=== PATIENT | male | born 1950 | race Caucasian/White ===

== ENCOUNTER 2021-11-02 07:50 | Inpatient (IN) ==
[2021-11-02] MEDS ORDERED: IPRATROPIUM/ALBUTEROL 3 ML AMPUL.NEB NEB ONE (08:04)
--- NOTE | 2021-11-02 08:08 | Emergency Department Note ---
HPI General Chief complaint: Shortness of Breath/Dyspnea Stated complaint: shortness of breath Time Seen by Provider: 11/02/21 08:04 Source: EMS Mode of arrival: EMS Limitations: other (SOB, BIPAP) History of Present Illness HPI Narrative: Narrative: 71 yo M w/ h/o COPD, JOSSELIN, muscular deconditioning p/w SOB. He reports chronic SOB that has recently worsened w/ no accompanying fever, chills, cough, or peripheral edema. SOB has been constant since onset. He called out to EMS who found him hypoxic and started him on supplemental O2 (unclear from report if NC or face mask) but had to quickly move up to CPAP at 10mmhg. They gave 125mg IV solumedrol and a nebulizer on route. They noted some blood tinged sputum and thus suspected CHF, and gave a dose of SL NTG. Pt improved w/ these measures. Related Data Home Medications Medication Instructions Recorded Confirmed cyanocobalamin (vitamin B-12) 2,500 mcg SUBLINGUAL QDAY 12/28/17 09/28/21 2,500 mcg sublingual lozenge ferrous sulfate 325 mg (65 mg 325 mg PO QDAY tab 12/28/17 09/28/21 iron) tablet pyridoxine (vitamin B6) 250 mg See Rx Instructions PO .COMPLEX 12/28/17 09/28/21 tablet (Vitamin B-6) bisoprolol fumarate 10 mg tablet 10 mg PO QDAY 02/03/18 09/28/21 guaifenesin 600 mg tablet, 600 mg PO Q12H 02/03/18 09/28/21 extended release 12 hr (Mucinex) atorvastatin 40 mg tablet 40 mg PO QDAY 05/10/18 09/28/21 torsemide 20 mg tablet 20 mg PO QDAY 05/10/18 09/28/21 aspirin 325 mg tablet 81 mg PO QDAY tab 03/26/19 09/28/21 levothyroxine 75 mcg capsule 75 mcg PO QDAY 03/26/19 09/28/21 trazodone 50 mg tablet 50 mg PO QDAY 03/26/19 09/28/21 CPAP #1 ea 10/24/19 09/28/21 acetaminophen [Tylenol] PO QDAY 01/29/20 09/28/21 cholecalciferol (vitamin D3) 25 2,000 unit PO ONCE cap 01/29/20 09/28/21 mcg (1,000 unit) capsule oxymetazoline 0.05 % nasal spray 1 spray INTRANASAL ONCE 01/29/20 09/28/21 (Afrin (oxymetazoline)) famotidine 20 mg tablet 40 mg PO QDAY tab 09/29/20 09/28/21 folic acid 1 mg tablet 1 mg PO QDAY 09/29/20 09/28/21 lisinopril 10 mg tablet 10 mg PO QDAY 09/29/20 09/28/21 Previous Rx's Medication Instructions Recorded fluticasone furoate 100 1 inh INHALATION Q24H #60 each 01/24/20 mcg-vilanterol 25 mcg/dose inhalation powder (Breo Ellipta) tiotropium bromide 2.5 See Rx Instructions .ROUTE 03/21/20 mcg/actuation mist for inhalation .COMPLEX #4 unknown measurement (Spiriva Respimat) unit code: gram fluticasone propionate 50 2 spray INTRANASAL QDAY #54.6 g 05/14/20 mcg/actuation nasal spray,suspension ipratropium 0.5 mg-albuterol 3 mg 3 ml INHALATION Q6H PRN #270 ml 04/01/21 (2.5 mg base)/3 mL nebulization soln albuterol sulfate 90 mcg/actuation 2 puff INHALATION Q6H PRN #8.5 g 04/09/21 aerosol inhaler (Ventolin HFA) Allergies Allergy/AdvReac Type Severity Reaction Status Date / Time No Known Drug Allergies Allergy Verified 06/02/21 11:50 latex tape AdvReac Intermediate Rash Uncoded 06/02/21 11:50 Review of Systems ROS ROS Narrative: Narrative: Limitations: ROS unobtainable due to patients medical condition [facility] Narrative Patient History Narrative: Narrative: Medical/Surgical/Family History All Active Problems (Updated 11/02/21 @ 11:52 by Alli Greene MD) Acute dyspnea (Acute) Acute exacerbation of CHF (congestive heart failure) (Acute) Pneumonia (Acute) Muscular deconditioning (Chronic) History of lung cancer (Acute) Abnormal CT scan, chest (Acute) Hypoxemia (Chronic) Solid nodule of lung greater than 8 mm in diameter (Acute) JOSSELIN on CPAP (Chronic) Non-small cell lung cancer (Chronic) SOB (shortness of breath) (Chronic) Shingles (Chronic) Malignant neoplasm of lung (Chronic) Malignant neoplasm of brain (Chronic) Elevated serum creatinine (Chronic) GERD (gastroesophageal reflux disease) (Chronic) Essential hypertension (Chronic) Morbid obesity (Chronic) Hyperlipidemia (Chronic) Hypothyroidism (Chronic) Malignant tumor of pharynx (Chronic) COPD (chronic obstructive pulmonary disease) (Chronic) Medical History Abnormal CT scan, chest COPD (chronic obstructive pulmonary disease) Elevated serum creatinine Essential hypertension GERD (gastroesophageal reflux disease) History of lung cancer Hyperlipidemia Hypothyroidism Hypoxemia Malignant neoplasm of brain Malignant neoplasm of lung Malignant tumor of pharynx Morbid obesity Muscular deconditioning Non-small cell lung cancer JOSSELIN on CPAP JOSSELIN on CPAP Pneumonia Shingles SOB (shortness of breath) Surgical History History of lobectomy of lung left lower History of throat surgery laryngeal cord Family History Father Heart disease Mother Heart disease Social History Smoking Status: Former smoker Alcohol Intake Frequency: does not drink Substance Use: does not use Exam Narrative Narrative: Narrative: General Limitations: other (SOB, BIPAP) General appearance: Present alert and in no apparent distress Head Head: Present atraumatic and normocephalic ENT ENT: Present normal oropharynx and mucous membranes moist Chest Chest: Present normal inspection and symmetric chest wall rise Respiratory Respiratory: Present decreased breath sounds (markedly decreased B/L air entry) and other (increased WOB but not in negrita distress ); Absent respiratory distress, rales/crackles, wheezes or stridor Cardiovascular Cardiovascular: Present regular rate, normal rhythm, +S1, +S2 and other (2+ B/L radial pulses); Absent systolic murmur or diastolic murmur Adbominal Abdominal: Present soft and normal bowel sounds; Absent distention or tenderness Extremities Extremities: Absent pedal edema Neurological Neurological: Present alert and oriented X3 Psychiatric Psychiatric: Present normal affect Skin Skin: Present warm (WNL) and dry Course Vital Signs Vital signs: Vital Signs Temperature 97.9 F 11/02/21 07:56 Pulse Rate 82 11/02/21 07:56 Respiratory Rate 18 11/02/21 07:56 Blood Pressure 153/85 11/02/21 07:56 Pulse Oximetry (%) 100 11/02/21 07:56 Temperature 98.4 F 11/02/21 11:00 Pulse Rate 69 11/02/21 13:06 Respiratory Rate 18 11/02/21 13:06 Blood Pressure 143/63 11/02/21 11:51 Pulse Oximetry (%) 90 11/02/21 13:06 MDM MDM Narrative Medical decision making narrative: Narrative: 71 yo M w/ h/o COPD, JOSSELIN, muscular deconditioning, HTN, CAD p/w SOB. DDx - COPD exacerbation, PNA, PTX, PE, ACS, CHF, neuromuscular respiratory failure 08:38. Pt arrived via EMS w/ CPAP in place, s/p solumedrol, nebs and NTG. I assessed him immediately on arrival. IV was in place, he was hooked to our monitors and RT switched him to BIPAP 20/10. His exam was notable for markedly decreased air entry. Bedside US was very limited d/t habitus. There was no pericardial effusion, and EF seemed grossly normal. It was difficult to get a good lung window - there did appear to be lung sliding but there were no obvious B lines. I thus started Tx w/ an hour long nebulizer. CXR was completed and showed no PTX, a likely RLL infiltrate, pulmonary edema, and some cardiomegaly. I added on abx. Additionally, given his decreased air entry, I gave a dose of mag. While this is more typically used for asthma, I saw little downside here. 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 Thus I will hold off on NTG until after mag. 09:49. Pt improving, still on BIPAP. ABG shows normal pH, normal CO2. Given this, along w/ his elevated BNP and CXR, the evidence is now pointing much more to CHF as the source of his Sx. Troponin is essentially normal at 0.04. Review of his chart shows that he takes torsemide, and while I did not initially hear this, in d/w the RN, EMS did report that he has a known h/o CHF. I have added another dose of NTG and ordered lasix. CBC shows leukocytosis, c/w likely PNA on CXR. CMP unremarkable. 12:49. Pt continues to improve, has responded well to Tx. Repeat troponin is pending. I have d/w Dr Carl w/ the hospitalist service who has accepted for admission. Of note, his final CXR read was for PNA vs mass. This was not immediately clear to me as PACS was done when he arrived and thus my only CXR view was on the machine. While he has a h/o lung CA and this apparent lung mass, overall CHF seems to be the primary pathology. PE seems less likely clinically. The lung mass itself might be contributory. May need CT chest but will defer to inpt team. Lab Data Lab results reviewed: Yes I reviewed the patient's lab results. Result diagrams: 11/02/21 08:24 11/02/21 08:24 Labs: Lab Results 11/02/21 11/02/21 11/02/21 Range/Units 08:05 08:24 08:24 WBC (4.5-11.0) K/mcL RBC (4.63-6.08) M/mcL Hgb (13.7-17.5) g/dL Hct (40.1-51.0) % MCV (80.0-100.0) fL MCH (26.0-34.0) pg MCHC (31.0-36.0) g/dL RDW (11.5-14.5) % Plt Count (140-440) K/mcL MPV (7.4-10.4) fL Neut % (Auto) (38.0-78.0) % Lymph % (Auto) (15.5-49.0) % [place] % (Auto) (1.0-12.0) % Eos % (Auto) (0.0-7.0) % Baso % (Auto) (0.0-2.0) % Lymph # (Auto) (1.50-4.80) K/mcL [place] # (Auto) (0.10-0.90) K/mcL Eos # (Auto) (0.00-0.70) K/mcL Baso # (Auto) (0.00-0.30) K/mcL Absolute Neutrophils (1.80-8.00) K/mcL PT 15.3 H (11.9-14.5) sec INR 1.2 H (0.9-1.1) APTT 35.5 (20.0-37.0) sec VBG Lactic Acid 1.2 (0.5-2.0) mmol/L Sodium 139 (133-145) mmol/L Potassium 3.9 (3.3-5.1) mmol/L Chloride 104 (96-108) mmol/L Carbon Dioxide 22 (22-30) mmol/L Anion Gap 13.0 (8.0-16.0) BUN 29 H (8-23) mg/dL Creatinine 1.8 H (0.7-1.2) mg/dL GFR Calculation 37 Glucose 136 H (70-105) mg/dL Calcium 9.4 (8.6-10.4) mg/dL Total Bilirubin 1.2 H (0.1-1.0) mg/dL AST 22 (<40) U/L ALT 32 (<40) U/L Alkaline Phosphatase 117 (39-117) U/L Total Creatine Kinase 75 (24-195) U/L CK-MB (CK-2) 1.6 (<6.7) ng/mL Troponin T (<0.03) ng/mL NT-Pro-B Natriuret Pep 2040.0 H (<125.0) pg/mL Total Protein 7.3 (5.9-8.4) gm/dL Albumin 4.1 (3.2-5.2) gm/dL Globulin 3.2 (2.2-3.7) gm/dL Albumin/Globulin Ratio 1.3 (1.0-2.3) Urine Color Urine Appearance (Clear) Urine pH (5.0-9.0) Ur Specific [place] (1.000-1.035) Urine Protein (Negative) mg/dL Urine Glucose (UA) (Negative) mg/dL Urine Ketones (Negative) mg/dL Urine Occult Blood (Negative) mg/dL Urine Nitrate (Negative) Urine Bilirubin (Negative) mg/dL Urine Urobilinogen mg/dL Ur Leukocyte Esterase (Negative) /uL Urine RBC (0-3) /hpf Urine WBC (0-4) /hpf Ur Squamous Epith Cells (0-4) /hpf Urine Bacteria (0) /hpf Urine Mucus (None) /hpf Ur Culture Indicated? 11/02/21 11/02/21 11/02/21 Range/Units 08:24 08:24 10:53 WBC 15.4 H (4.5-11.0) K/mcL RBC 4.64 (4.63-6.08) M/mcL Hgb 12.7 L (13.7-17.5) g/dL Hct 41.1 (40.1-51.0) % MCV 88.6 (80.0-100.0) fL MCH 27.4 (26.0-34.0) pg MCHC 30.9 L (31.0-36.0) g/dL RDW 17.9 H (11.5-14.5) % Plt Count 317 (140-440) K/mcL MPV 10.1 (7.4-10.4) fL Neut % (Auto) 86.5 H (38.0-78.0) % Lymph % (Auto) 4.2 L (15.5-49.0) % [place] % (Auto) 7.4 (1.0-12.0) % Eos % (Auto) 1.2 (0.0-7.0) % Baso % (Auto) 0.7 (0.0-2.0) % Lymph # (Auto) 0.65 L (1.50-4.80) K/mcL [place] # (Auto) 1.14 H (0.10-0.90) K/mcL Eos # (Auto) 0.19 (0.00-0.70) K/mcL Baso # (Auto) 0.11 (0.00-0.30) K/mcL Absolute Neutrophils 13.31 H (1.80-8.00) K/mcL PT (11.9-14.5) sec INR (0.9-1.1) APTT (20.0-37.0) sec VBG Lactic Acid (0.5-2.0) mmol/L Sodium (133-145) mmol/L Potassium (3.3-5.1) mmol/L Chloride (96-108) mmol/L Carbon Dioxide (22-30) mmol/L Anion Gap (8.0-16.0) BUN (8-23) mg/dL Creatinine (0.7-1.2) mg/dL GFR Calculation Glucose (70-105) mg/dL Calcium (8.6-10.4) mg/dL Total Bilirubin (0.1-1.0) mg/dL AST (<40) U/L ALT (<40) U/L Alkaline Phosphatase (39-117) U/L Total Creatine Kinase (24-195) U/L CK-MB (CK-2) (<6.7) ng/mL Troponin T 0.04 H* (<0.03) ng/mL NT-Pro-B Natriuret Pep (<125.0) pg/mL Total Protein (5.9-8.4) gm/dL Albumin (3.2-5.2) gm/dL Globulin (2.2-3.7) gm/dL Albumin/Globulin Ratio (1.0-2.3) Urine Color Straw Urine Appearance Clear (Clear) Urine pH 5.0 (5.0-9.0) Ur Specific [place] 1.009 (1.000-1.035) Urine Protein Negative (Negative) mg/dL Urine Glucose (UA) Negative (Negative) mg/dL Urine Ketones Negative (Negative) mg/dL Urine Occult Blood 0.03 (Negative) mg/dL Urine Nitrate Negative (Negative) Urine Bilirubin Negative (Negative) mg/dL Urine Urobilinogen Negative mg/dL Ur Leukocyte Esterase Negative (Negative) /uL Urine RBC 1 (0-3) /hpf Urine WBC 2 (0-4) /hpf Ur Squamous Epith Cells 0 (0-4) /hpf Urine Bacteria None (0) /hpf Urine Mucus Few A (None) /hpf Ur Culture Indicated? No 11/02/21 Range/Units 12:01 WBC (4.5-11.0) K/mcL RBC (4.63-6.08) M/mcL Hgb (13.7-17.5) g/dL Hct (40.1-51.0) % MCV (80.0-100.0) fL MCH (26.0-34.0) pg MCHC (31.0-36.0) g/dL RDW (11.5-14.5) % Plt Count (140-440) K/mcL MPV (7.4-10.4) fL Neut % (Auto) (38.0-78.0) % Lymph % (Auto) (15.5-49.0) % [place] % (Auto) (1.0-12.0) % Eos % (Auto) (0.0-7.0) % Baso % (Auto) (0.0-2.0) % Lymph # (Auto) (1.50-4.80) K/mcL [place] # (Auto) (0.10-0.90) K/mcL Eos # (Auto) (0.00-0.70) K/mcL Baso # (Auto) (0.00-0.30) K/mcL Absolute Neutrophils (1.80-8.00) K/mcL PT (11.9-14.5) sec INR (0.9-1.1) APTT (20.0-37.0) sec VBG Lactic Acid (0.5-2.0) mmol/L Sodium (133-145) mmol/L Potassium (3.3-5.1) mmol/L Chloride (96-108) mmol/L Carbon Dioxide (22-30) mmol/L Anion Gap (8.0-16.0) BUN (8-23) mg/dL Creatinine (0.7-1.2) mg/dL GFR Calculation Glucose (70-105) mg/dL Calcium (8.6-10.4) mg/dL Total Bilirubin (0.1-1.0) mg/dL AST (<40) U/L ALT (<40) U/L Alkaline Phosphatase (39-117) U/L Total Creatine Kinase (24-195) U/L CK-MB (CK-2) (<6.7) ng/mL Troponin T 0.03 H (<0.03) ng/mL NT-Pro-B Natriuret Pep (<125.0) pg/mL Total Protein (5.9-8.4) gm/dL Albumin (3.2-5.2) gm/dL Globulin (2.2-3.7) gm/dL Albumin/Globulin Ratio (1.0-2.3) Urine Color Urine Appearance (Clear) Urine pH (5.0-9.0) Ur Specific [place] (1.000-1.035) Urine Protein (Negative) mg/dL Urine Glucose (UA) (Negative) mg/dL Urine Ketones (Negative) mg/dL Urine Occult Blood (Negative) mg/dL Urine Nitrate (Negative) Urine Bilirubin (Negative) mg/dL Urine Urobilinogen mg/dL Ur Leukocyte Esterase (Negative) /uL Urine RBC (0-3) /hpf Urine WBC (0-4) /hpf Ur Squamous Epith Cells (0-4) /hpf Urine Bacteria (0) /hpf Urine Mucus (None) /hpf Ur Culture Indicated? ED POC Tests ED POC Tests: SIM - Influenza A Negative SIM - Influenza B Negative SIM - SARS Antigen Negative EKG Data EKG #1: EKG attestation: Yes I reviewed and interpreted this EKG. and Yes There are no EKG findings of acute coronary syndrome EKG results narrative: Sinus rate of 79. Normal CO, QRS, QT intervals. QTc 480. No STEMI, [place], [place]. Single PVC noted. No previous for comparison. CC TIME Critical Care Time Attestation: Approximately 35 minutes of critical care time was used in order to assess and manage the high probability of imminent or life threatening deterioration to the cardiovascular and pulmonary systems which required my highest level of preparedness and interventions with frequent patient assessments. This time is excluding time spent on separately billable procedures. Discharge Plan Patient/Caregiver Discharge Instructions Pt seen by OUTBOARD MOTOR INSPECTOR/PA only: No Clinical Impression: Acute dyspnea, COPD (chronic obstructive pulmonary disease), JOSSELIN on CPAP, Acute exacerbation of CHF (congestive heart failure), Pneumonia Patient Disposition: Xfer As Inpt ([facility]) Condition: Serious Follow up with: Sirena Rosen [Primary Care Provider] - Prescriptions: No Action Breo Ellipta 100-25 mcg/dose blister with device 1 inh INHALATION Q24H Qty: 60 6RF tiotropium bromide [Spiriva Respimat] 2.5 mcg/actuation mist See Rx Instructions .ROUTE .COMPLEX Qty: 4 6RF Dose Instruction: INHALE TWO PUFFS BY MOUTH IN THE MORNING Rx Instructions: INHALE TWO PUFFS BY MOUTH IN THE MORNING fluticasone propionate 50 mcg/actuation spray,suspension 2 spray INTRANASAL QDAY Qty: 54.6 12RF Rx Instructions: administer into each nostril ipratropium-albuterol 0.5 mg-3 mg(2.5 mg base)/3 mL solution for nebulization 3 ml inhalation Q6H PRN (Reason: shortness of breath or wheezing) Qty: 270 3RF Rx Instructions: Do not use within 2 hours of other inhalers albuterol sulfate [Ventolin HFA] 90 mcg/actuation HFA aerosol inhaler 2 puff INHALATION Q6H PRN (Reason: shortness of breath or wheezing) Qty: 8.5 3RF cyanocobalamin (vitamin B-12) 2,500 mcg lozenge 2,500 mcg SUBLINGUAL QDAY 0RF ferrous sulfate 325 mg (65 mg iron) tablet 325 mg PO QDAY 0RF pyridoxine (vitamin B6) [Vitamin B-6] 250 mg tablet See Rx Instructions PO .COMPLEX 0RF Label Comments: PO Rx Instructions: PO aspirin 325 mg tablet 81 mg PO QDAY 0RF acetaminophen PO QDAY 0RF bisoprolol fumarate 10 mg tablet 10 mg PO QDAY 0RF guaifenesin [Mucinex] 600 mg tablet extended release 12hr 600 mg PO Q12H 0RF cholecalciferol (vitamin D3) 25 mcg (1,000 unit) capsule 2,000 unit PO ONCE 0RF atorvastatin 40 mg tablet 40 mg PO QDAY 0RF torsemide 20 mg tablet 20 mg PO QDAY 0RF trazodone 50 mg tablet 50 mg PO QDAY 0RF levothyroxine 75 mcg capsule 75 mcg PO QDAY 0RF oxymetazoline [Afrin (oxymetazoline)] 0.05 % spray,non-aerosol 1 spray INTRANASAL ONCE 0RF (DME) CPAP Qty: 1 0RF Rx Instructions: As directed lisinopril 10 mg tablet 10 mg PO QDAY 0RF famotidine 20 mg tablet 40 mg PO QDAY 0RF folic acid 1 mg tablet 1 mg PO QDAY 0RF
[2021-11-02] MEDS ORDERED: ALBUTEROL SULFATE 5 MG/ML NEB SOLUTION BOTTLE NEB ONE (08:11)
[2021-11-02] MEDS ORDERED: MAGNESIUM SULFATE 8.12 MEQ/2 ML VIAL IV ONE (08:15)
[2021-11-02] MEDS ORDERED: cefTRIAXone 2 GM in DEXTROSE 5% IN WATER 50 ML IV ONE (08:28)
[2021-11-02] MEDS ORDERED: AZITHROMYCIN 500 MG in DEXTROSE 5% IN WATER 250 ML IV ONE (08:28)
[2021-11-02] MEDS ORDERED: MAGNESIUM SULFATE 2 GM/50 ML BAG IV ONE (09:04)
[2021-11-02 09:19] LABS: INR 1.2 (0.9-1.1); Partial Thromboplastin Time 35.5 sec (20.0-37.0); Prothrombin Time 15.3 sec (11.9-14.5)
[2021-11-02 09:26] LABS: Basophils # (Auto) 0.11 K/mcL (0.00-0.30); Basophils % (Auto) 0.7 % (0.0-2.0); Eosinophils # (Auto) 0.19 K/mcL (0.00-0.70); Eosinophils % (Auto) 1.2 % (0.0-7.0); Hematocrit 41.1 % (40.1-51.0); Hemoglobin 12.7 g/dL (13.7-17.5); Lymphocytes # (Auto) 0.65 K/mcL (1.50-4.80); Lymphocytes % (Auto) 4.2 % (15.5-49.0); Mean Cell Volume 88.6 fL (80.0-100.0); Mean Corpuscular HGB Conc 30.9 g/dL (31.0-36.0); Mean Platelet Volume 10.1 fL (7.4-10.4); Monocytes # (Auto) 1.14 K/mcL (0.10-0.90); Monocytes % (Auto) 7.4 % (1.0-12.0); Neutrophils % (Auto) 86.5 % (38.0-78.0); Platelet Count 317 K/mcL (140-440); RBC 4.64 M/mcL (4.63-6.08); Red Cell Distribution Width 17.9 % (11.5-14.5); WBC 15.4 K/mcL (4.5-11.0)
[2021-11-02 09:44] LABS: ALT/SGPT 32 U/L (<40); AST/SGOT 22 U/L (<40); Albumin 4.1 gm/dL (3.2-5.2); Albumin/Globulin Ratio 1.3 (1.0-2.3); Alkaline Phosphatase 117 U/L (39-117); Bilirubin,Total 1.2 mg/dL (0.1-1.0); Blood Urea Nitrogen 29 mg/dL (8-23); Calcium 9.4 mg/dL (8.6-10.4); Carbon Dioxide 22 mmol/L (22-30); Chloride 104 mmol/L (96-108); Creatine Kinase 75 U/L (24-195); Creatine Kinase MB 1.6 ng/mL (<6.7); Globulin 3.2 gm/dL (2.2-3.7); Glomerular Filtration Rate 37; Glucose 136 mg/dL (70-105)
[2021-11-02] MEDS ORDERED: FUROSEMIDE 40 MG/4 ML VIAL IV ONE (09:44)
[2021-11-02] MEDS ORDERED: NITROGLYCERIN 0.4 MG TAB.SUBL SL ONE (09:44)
--- NOTE | 2021-11-02 11:23 | EKG ---
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 Measurements Intervals [place] Rate: 79 P: 53 MS: 191 QRS: -13 QRSD: 116 T: 50 QT: 418 QTc: 480 Interpretive Statements Sinus rhythm Multiform ventricular premature complexes Electronically Signed On 11-02-2021 11:22:48 PST by Jose F Abdi M.D. /[id number]
[2021-11-02 11:49] LABS: Appearance,Urine CLEAR (Clear); Bilirubin,Urine Negative (Negative); Color,Urine STRAW; Culture Indicated,Urine No; Glucose,Urine (UA) Negative (Negative); Ketones,Urine Negative (Negative); Leukocyte Esterase,Urine Negative /uL (Negative); Mucus,Urine FEW /hpf; Nitrate,Urine Negative (Negative); Protein,Urine Negative (Negative); Specific Gravity,Urine 1.009 (1.000-1.035); Urine Blood 0.03 mg/dL (Negative); Urine RBC 1 /hpf (0-3); Urine Squamous Epithelial Cell 0 /hpf (0-4); Urine WBC 2 /hpf (0-4); Urobilinogen,Urine Negative
--- NOTE | 2021-11-02 12:17 | XRay Report ---
CLINICAL INFORMATION: Dyspnea COMPARISON: None. TECHNIQUE: Portable FINDINGS: The heart is mildly enlarged. Mediastinum is unremarkable. The pulmonary vessels are mildly distended. A moderate (7.2 cm) masslike infiltrate or, less likely, a mass is seen in the medial right lung base. There are no effusions. IMPRESSION: Mild CHF. 7 cm mass versus masslike infiltrate in the right medial lung base. If pneumonia is suspected clinically, suggest two view follow-up chest x-ray in the next 3-4 weeks to ensure resolution. If the density persists, chest CT will be required to evaluate for a mass Interpreted and Authenticated by: Jose F Diaz 11/02/21
[2021-11-02] MEDS ORDERED: LACTULOSE 20 GM/30 ML ORAL.SOL PO PRN (13:22)
[2021-11-02] MEDS ORDERED: SENNOSIDES 1 TABLET PO PRN (13:22)
[2021-11-02] MEDS ORDERED: ONDANSETRON 4 MG/2 ML VIAL IV PRN (13:22)
[2021-11-02] MEDS ORDERED: ACETAMINOPHEN 325 MG TABLET PO PRN (13:22)
[2021-11-02] MEDS ORDERED: cefTRIAXone 1 GM in DEXTROSE 5% IN WATER 50 ML IV SCH (13:30)
--- NOTE | 2021-11-02 13:31 | Internal Med History&Physical ---
HPI History of Present Illness Patient information: Note initiated : 11/02/21 at 1:31 pm Service Date, if different from initiated Date: [] Patient: Ced Mejía a 71 y/o M admitted on for shortness of breath. Chief Complaint: [shortness of breath] Chief complaint: shortness of breath History of present illness: Mr. 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 Patient started to have acute onset shortness of breath since yesterday night. He is also complaining of cough with hemoptysis. Is also complaining of respiratory wheezings. He denies any chest pain or chest tightness. He denies any anxiety. He denies any fever, chills, or diaphoresis. He is unaware of the history of heart failure although he stated that he had cardiac coronary stent placement years ago. He denies any unintentional weight gain. He is complaining of mild bilateral legs pitting edema. He denies any change in his appetite. Vital signs at ED presentation significant for oxygen desaturating to the upper 80s on home oxygen. Tachypnea with rate of breathing in the mid 20s. Rest of the vital signs within normal limits. Labs significant for leukocytosis with WBC 15.4. Serum troponin level 0.04 followed by 0.03. BNP 2040. Maren negative. [place] pending. Chest x-ray showing 7 cm mass versus masslike infiltrate in the right medial lung base. Constitutional Constitutional: Absent chills, excessive sweating, fatigue, fever(s) or weakness EENT Eyes: Absent blurry vision, change in vision, loss of vision or other visual disturbances Ears: Absent decreased hearing or tinnitus Nose, mouth and throat: Absent abnormal hearing, dry mouth, headache(s), nasal congestion or sore throat Cardiovascular Cardiovascular: Present edema and leg edema; Absent chest pain, chest pain at rest, irregular heart rhythm or palpatations Respiratory Respiratory: Present cough, dyspnea, hemoptysis and wheezing Gastrointestinal Gastrointestinal: Absent abdominal pain, constipation, diarrhea, nausea or vomi ting Musculoskeletal Musculoskeletal: Absent back pain, deformity, limited range of motion, muscle cramps, muscle weakness or numbness Integumentary Integumentary: Absent lesions, rash or wounds Neurological Neurological: Absent focal weakness, headache(s) or numbness Psychiatric Psychiatric: Absent anxiety, depression or hallucinations PFSH PFSH All Active Problems (Updated 11/02/21 @ 13:40 by Remigio Carl MD) Acute and chronic respiratory failure with hypoxia (Acute) Lung mass (Acute) COPD exacerbation (Acute) Acute respiratory failure with hypoxia (Acute) Acute dyspnea (Acute) Pneumonia (Acute) Muscular deconditioning (Chronic) History of lung cancer (Acute) Abnormal CT scan, chest (Acute) Hypoxemia (Chronic) Solid nodule of lung greater than 8 mm in diameter (Acute) JOSSELIN on CPAP (Chronic) Non-small cell lung cancer (Chronic) SOB (shortness of breath) (Chronic) Shingles (Chronic) Malignant neoplasm of lung (Chronic) Malignant neoplasm of brain (Chronic) Elevated serum creatinine (Chronic) GERD (gastroesophageal reflux disease) (Chronic) Essential hypertension (Chronic) Morbid obesity (Chronic) Hyperlipidemia (Chronic) Hypothyroidism (Chronic) Malignant tumor of pharynx (Chronic) COPD (chronic obstructive pulmonary disease) (Chronic) Medical History Abnormal CT scan, chest COPD (chronic obstructive pulmonary disease) Elevated serum creatinine Essential hypertension GERD (gastroesophageal reflux disease) History of lung cancer Hyperlipidemia Hypothyroidism Hypoxemia Malignant neoplasm of brain Malignant neoplasm of lung Malignant tumor of pharynx Morbid obesity Muscular deconditioning Non-small cell lung cancer JOSSELIN on CPAP JOSSELIN on CPAP Pneumonia Shingles SOB (shortness of breath) Surgical History History of lobectomy of lung left lower History of throat surgery laryngeal cord Family History Father Heart disease Mother Heart disease Social History education level: high school occupational status: unemployed alcohol intake frequency: does not drink substance use type: does not use seatbelt use: always working smoke detector in home: Yes firearms in home: Yes MEDS/ALLERGIES Home Medications and Allergies Home Medications Medication Instructions Recorded Confirmed Type cyanocobalamin (vitamin B-12) 2,500 mcg SUBLINGUAL QDAY 12/28/17 09/28/21 History 2,500 mcg sublingual lozenge ferrous sulfate 325 mg (65 mg 325 mg PO QDAY tab 12/28/17 09/28/21 History iron) tablet pyridoxine (vitamin B6) 250 mg See Rx Instructions PO .COMPLEX 12/28/17 09/28/21 History tablet (Vitamin B-6) bisoprolol fumarate 10 mg tablet 10 mg PO QDAY 02/03/18 09/28/21 History guaifenesin 600 mg tablet, 600 mg PO Q12H 02/03/18 09/28/21 History extended release 12 hr (Mucinex) atorvastatin 40 mg tablet 40 mg PO QDAY 05/10/18 09/28/21 History torsemide 20 mg tablet 20 mg PO QDAY 05/10/18 09/28/21 History aspirin 325 mg tablet 81 mg PO QDAY tab 03/26/19 09/28/21 History levothyroxine 75 mcg capsule 75 mcg PO QDAY 03/26/19 09/28/21 History trazodone 50 mg tablet 50 mg PO QDAY 03/26/19 09/28/21 History CPAP #1 ea 10/24/19 09/28/21 History fluticasone furoate 100 1 inh INHALATION Q24H #60 each 01/24/20 09/28/21 Rx mcg-vilanterol 25 mcg/dose inhalation powder (Breo Ellipta) acetaminophen [Tylenol] PO QDAY 01/29/20 09/28/21 History cholecalciferol (vitamin D3) 25 2,000 unit PO ONCE cap 01/29/20 09/28/21 History mcg (1,000 unit) capsule oxymetazoline 0.05 % nasal spray 1 spray INTRANASAL ONCE 01/29/20 09/28/21 History (Afrin (oxymetazoline)) tiotropium bromide 2.5 See Rx Instructions .ROUTE 03/21/20 09/28/21 Rx mcg/actuation mist for inhalation .COMPLEX #4 unknown measurement (Spiriva Respimat) unit code: gram fluticasone propionate 50 2 spray INTRANASAL QDAY #54.6 g 05/14/20 09/28/21 Rx mcg/actuation nasal spray,suspension famotidine 20 mg tablet 40 mg PO QDAY tab 09/29/20 09/28/21 History folic acid 1 mg tablet 1 mg PO QDAY 09/29/20 09/28/21 History lisinopril 10 mg tablet 10 mg PO QDAY 09/29/20 09/28/21 History ipratropium 0.5 mg-albuterol 3 mg 3 ml INHALATION Q6H PRN #270 ml 04/01/21 09/28/21 Rx (2.5 mg base)/3 mL nebulization soln albuterol sulfate 90 mcg/actuation 2 puff INHALATION Q6H PRN #8.5 g 04/09/21 09/28/21 Rx aerosol inhaler (Ventolin HFA) Allergies Allergy/AdvReac Type Severity Reaction Status Date / Time No Known Drug Allergies Allergy Verified 06/02/21 11:50 latex tape AdvReac Intermediate Rash Uncoded 06/02/21 11:50 EXAM Constitutional Vitals: Temp Pulse Resp BP Pulse Ox 36.9 C 82 25 H 176/85 95 11/02/21 11:00 11/02/21 13:21 11/02/21 13:25 11/02/21 13:21 11/02/21 13:21 General appearance: cooperative and no acute distress Head Head exam: Present atraumatic and normocephalic Eye Eye exam: Present EOMI and PERRL ENT ENT exam: Present mucous membranes moist, normal exam and normal external ear exam Additional comments: BiPAP in place Neck Neck exam: Present normal inspection; Absent lymphadenopathy, tenderness or thyromegaly Respiratory Respiratory exam: Present decreased breath sounds and rhonchi; Absent accessory muscle use, CTAB, respiratory distress or wheezes Cardiovascular Cardiovascular exam: Present normal rate and rhythm; Absent JVD GI/Abdominal GI/Abdominal exam: Present normal bowel sounds and soft; Absent organomegaly or tenderness Rectal Rectal exam: Present deferred Extremities Exam Extremities exam: Present full ROM, normal capillary refill and normal inspection; Absent tenderness Neurological Exam Neurological exam: Present alert, CN II-XII intact and oriented X3; Absent motor sensory deficit Psychiatric Psychiatric exam: Present normal affect and normal mood; Absent anxious or depressed Skin Skin exam: Present dry and intact DATA Data Completed and Pending Labs: Labs from last 24 hours 11/02/21 11/02/21 11/02/21 12:01 10:53 08:24 WBC 15.4 H RBC 4.64 Hgb 12.7 L Hct 41.1 MCV 88.6 MCH 27.4 MCHC 30.9 L RDW 17.9 H Plt Count 317 MPV 10.1 Neut % (Auto) 86.5 H Lymph % (Auto) 4.2 L Mcmullen % (Auto) 7.4 Eos % (Auto) 1.2 Baso % (Auto) 0.7 Lymph # (Auto) 0.65 L Mcmullen # (Auto) 1.14 H Eos # (Auto) 0.19 Baso # (Auto) 0.11 Absolute Neutrophils 13.31 H PT INR APTT VBG Lactic Acid Sodium Potassium Chloride Carbon Dioxide Anion Gap BUN Creatinine GFR Calculation Glucose Calcium Total Bilirubin AST ALT Alkaline Phosphatase Total Creatine Kinase CK-MB (CK-2) Troponin T 0.03 H NT-Pro-B Natriuret Pep Total Protein Albumin Globulin Albumin/Globulin Ratio Urine Color Straw Urine Appearance Clear Urine pH 5.0 Ur Specific [place] 1.009 Urine Protein Negative Urine Glucose (UA) Negative Urine Ketones Negative Urine Occult Blood 0.03 Urine Nitrate Negative Urine Bilirubin Negative Urine Urobilinogen Negative Ur Leukocyte Esterase Negative Urine RBC 1 Urine WBC 2 Ur Squamous Epith Cells 0 Urine Bacteria None Urine Mucus Few A Ur Culture Indicated? No 11/02/21 11/02/21 11/02/21 08:24 08:24 08:24 WBC RBC Hgb Hct MCV MCH MCHC RDW Plt Count MPV Neut % (Auto) Lymph % (Auto) Mcmullen % (Auto) Eos % (Auto) Baso % (Auto) Lymph # (Auto) Mcmullen # (Auto) Eos # (Auto) Baso # (Auto) Absolute Neutrophils PT INR APTT VBG Lactic Acid 1.2 Sodium 139 Potassium 3.9 Chloride 104 Carbon Dioxide 22 Anion Gap 13.0 BUN 29 H Creatinine 1.8 H GFR Calculation 37 Glucose 136 H Calcium 9.4 Total Bilirubin 1.2 H AST 22 ALT 32 Alkaline Phosphatase 117 Total Creatine Kinase 75 CK-MB (CK-2) 1.6 Troponin T 0.04 H* NT-Pro-B Natriuret Pep 2040.0 H Total Protein 7.3 Albumin 4.1 Globulin 3.2 Albumin/Globulin Ratio 1.3 Urine Color Urine Appearance Urine pH Ur Specific [place] Urine Protein Urine Glucose (UA) Urine Ketones Urine Occult Blood Urine Nitrate Urine Bilirubin Urine Urobilinogen Ur Leukocyte Esterase Urine RBC Urine WBC Ur Squamous Epith Cells Urine Bacteria Urine Mucus Ur Culture Indicated? 11/02/21 08:05 WBC RBC Hgb Hct MCV MCH MCHC RDW Plt Count MPV Neut % (Auto) Lymph % (Auto) Mcmullen % (Auto) Eos % (Auto) Baso % (Auto) Lymph # (Auto) Mcmullen # (Auto) Eos # (Auto) Baso # (Auto) Absolute Neutrophils PT 15.3 H INR 1.2 H APTT 35.5 VBG Lactic Acid Sodium Potassium Chloride Carbon Dioxide Anion Gap BUN Creatinine GFR Calculation Glucose Calcium Total Bilirubin AST ALT Alkaline Phosphatase Total Creatine Kinase CK-MB (CK-2) Troponin T NT-Pro-B Natriuret Pep Total Protein Albumin Globulin Albumin/Globulin Ratio Urine Color Urine Appearance Urine pH Ur Specific [place] Urine Protein Urine Glucose (UA) Urine Ketones Urine Occult Blood Urine Nitrate Urine Bilirubin Urine Urobilinogen Ur Leukocyte Esterase Urine RBC Urine WBC Ur Squamous Epith Cells Urine Bacteria Urine Mucus Ur Culture Indicated? A/P Assessment and plan (1) JOSSELIN on CPAP: Status: Chronic (2) Acute respiratory failure with hypoxia: Status: Acute (3) COPD exacerbation: Status: Acute (4) Lung mass: Status: Acute (5) GERD (gastroesophageal reflux disease): Status: Chronic Qualifiers: Esophagitis presence: esophagitis presence not specified Qualified Code(s): K21.9 - Gastro-esophageal reflux disease without esophagitis (6) Morbid obesity: Status: Chronic (7) Essential hypertension: Status: Chronic (8) Hyperlipidemia: Status: Chronic (9) Hypothyroidism: Status: Chronic (10) Acute and chronic respiratory failure with hypoxia: Status: Acute Narrative A/P Narrative: Assessment and Plans: 1. Acute on chronic respiratory failure with hypoxia: DDx: COPD exacerbation vs CHF exacerbation vs community acquired pneumonia vs recurrence of lung cancer vs CoVID pneumonia Inpatient PCU telemetry Isolation: airborne and contact, while waiting for [place] results BiPAP ABG COPD exacerbation: Prednisone DuoNEB NEB q4hr scheduled DuoNEB NEB q2hr PRN wheezing Spiriva and Breo Azithromycin CHF with exacerbation: Intake and output Daily weight 2L/day fluid restriction Lasix 20mg IV BID Beta jahaira Lisinopril 2D echocardiogram CAP: Rocephin Zithromax cbc w/ auto diff in the monring to trend WBC Recurrence of lung cancer: f/u CT chest w/o contrast to better delineate the 7cm mass seen in the 1 view CXR JOSSELIN on CPAP: Currently on BiPAP 2. 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 Essential HTN: Currently normotensive Lasix 20mg IV BID Beta jahaira Lisinopril Hydralazine 10mg IV q4hr PRN SBp>=180 and/or DBP>=110mmHg 4. Mixed dyslipidemia: Continue statin therapy 5. GERD: Continue Famotidine 6. Hypothyroidism: Continue oral thyroid replacement therapy 7. CKD III: Current serum Cr level at baseline Avoid nephrotoxic agents Saline lock with Lasix CMP in the morning to trend kidney functions 8. Elevated troponin-i level: Serial troponin trend GI ppx: Famotidine DVT ppx: Heparin Code status: Full Prognosis: extremely guarded Disposition: inpatient PCU telemetry Time Spent With Patient Time: Total time spent is greater than 50% in coordination of care (as documented) at patient's floor/unit and/or counseling patient: Total time spent with greater than 50% in coordination of care (as documented) at patient's floor/unit and/or counseling patient:: Greater than 35 minutes
[2021-11-02] MEDS ORDERED: IPRATROPIUM/ALBUTEROL 3 ML AMPUL.NEB NEB PRN (14:29)
[2021-11-02] MEDS ORDERED: hydrALAZINE 20 MG/ML VIAL IV PRN (14:29)
[2021-11-02] MEDS ORDERED: OXYMETAZOLINE 1 SPRAY BOTTLE NAS SCH (14:29)
--- NOTE | 2021-11-02 14:35 | Cat Scan Report ---
CLINICAL INFORMATION: Right middle lobe mass on plain film. COMPARISON: Plain film 11/02/2021 TECHNIQUE: 0.625 mm axial slices were obtained from the lung apices through the bases without intravenous contrast. 2.5 mm Sagittal, coronal and axial reformatted images were processed and reviewed at bone, lung and soft tissue windows. 7 mm axial MIP images were also reconstructed to optimize pulmonary nodule detection.The exam was performed using radiation dose optimization techniques including, but not limited to, automated exposure control, adjustment of the mA and/or kV according to patient size and use of iterative reconstruction technique. FINDINGS: Pulmonary parenchymal windows show a 6.2 cm stellate mass in the right infrahilar region which encases and obstructs the right middle lobe bronchus. It results in complete right middle lobe atelectasis. Mass also narrows the right lower lobe bronchus resulting in partial right lower lobe atelectasis. This is suspicious for primary lung carcinoma. A 19 mm linear, yet slightly irregular, density in the left lung apex almost certainly focal scarring. Moderate consolidated infiltrate or atelectasis involving the medial and posterior basilar segments of the left lower lobe are also noted. Severe underlying centrilobular emphysema features chronic bronchitis and multiple bullae nearly replacing the upper lobes. There is also scattered groundglass airspace disease predominantly in the periphery of the upper lobes. This likely represents chronic fibrosis. There are no pleural effusions. Mediastinal windows show the heart is mildly enlarged with moderate calcific plaque scattered in the coronary arteries. Noncontrast vascularity is normal diameter with atherosclerotic plaque scattered. The central pulmonary arteries are mildly enlarged: main pulmonary diameter: 3.7 cm compatible with pulmonary hypertension related to COPD. A few mildly enlarged lymph nodes are seen in the right infrahilar region may be metastatic or reactive. There are also scattered (6-7 and (enlarged mid and upper mediastinal lymph nodes ranging up to 17 mm anterior paratracheal region and they may be metastatic or benign reactive lymph nodes. Esophagus is grossly normal. Thyroid is normal. Bones and soft tissues of the chest wall show no abnormality. Images Images through the noncontrasted superior abdomen show liver adrenal glands pancreas and spleen to be normal. There are 2-3 small stones in the gallbladder neck. IMPRESSION: 1. 6 cm stellate mass in the right infrahilar region including the right middle lobe bronchus resulting in complete right middle lobe atelectasis. It also narrows the right lower lobe bronchus resulting in partial right lower lobe atelectasis. It is suspicious for primary lung carcinoma. There are mildly enlarged lymph nodes in the right hilum and mediastinum which are either metastatic or reactive. Suggest: CT-guided percutaneous biopsy. Patient will eventually require PET/CT for staging. 2. Moderate consolidated atelectasis or infiltrate in the medial posterior basilar left lower lobe segments 3. Moderate centrilobular emphysema. Mild enlargement of the central pulmonary arteries compatible with associated pulmonary hypertension. 4. Focal scarring left lung apex 5. Cholelithiasis. Interpreted and Authenticated by: Jose F Diaz 11/02/21
[2021-11-02] MEDS: 0.9 % SODIUM CHLORIDE 10 ML SYRINGE IV SCH ×2 (15:46→21:53)
[2021-11-02] MEDS: FUROSEMIDE 20 MG/2 ML VIAL IV SCH (15:52)
[2021-11-02] MEDS: guaiFENesin 600 MG TAB.SR.12H PO SCH (15:52)
[2021-11-02] MEDS: IPRATROPIUM/ALBUTEROL 3 ML AMPUL.NEB NEB SCH ×3 (16:25→21:45)
[2021-11-02] MEDS ORDERED: traZODone HCL 50 MG TABLET PO PRN (21:00)
[2021-11-02] MEDS: HEPARIN 5,000 UNIT/ML VIAL SQ SCH (21:52)
[2021-11-02] MEDS: DOCUSATE SODIUM 100 MG CAPSULE PO SCH (21:52)
[2021-11-03] MEDS: guaiFENesin 600 MG TAB.SR.12H PO SCH ×3 (02:36→21:52)
[2021-11-03] MEDS: IPRATROPIUM/ALBUTEROL 3 ML AMPUL.NEB NEB SCH ×6 (03:08→23:15)
[2021-11-03] MEDS: 0.9 % SODIUM CHLORIDE 10 ML SYRINGE IV SCH ×3 (05:42→21:53)
[2021-11-03] MEDS: LEVOTHYROXINE 75 MCG TABLET PO SCH (07:45)
[2021-11-03] MEDS ORDERED: FAMOTIDINE 20 MG TABLET PO SCH (09:00)
[2021-11-03] MEDS ORDERED: ATORVASTATIN 40 MG TABLET PO SCH (09:00)
[2021-11-03] MEDS ORDERED: ASPIRIN 81 MG TAB.CHEW PO SCH (09:00)
[2021-11-03] MEDS ORDERED: PYRIDOXINE 100 MG TABLET PO SCH (09:00)
[2021-11-03] MEDS: AZITHROMYCIN 500 MG in DEXTROSE 5% IN WATER 250 ML IV SCH (09:00)
[2021-11-03] MEDS ORDERED: CALCIUM CARBONATE 500 MG TAB.CHEW CHEWED PRN (09:03)
[2021-11-03 09:11] LABS: Basophils # (Auto) 0.02 K/mcL (0.00-0.30); Basophils % (Auto) 0.1 % (0.0-2.0); Eosinophils # (Auto) 0 K/mcL (0.00-0.70); Eosinophils % (Auto) 0 % (0.0-7.0); Hematocrit 39.8 % (40.1-51.0); Hemoglobin 12.4 g/dL (13.7-17.5); Lymphocytes # (Auto) 0.54 K/mcL (1.50-4.80); Lymphocytes % (Auto) 3.5 % (15.5-49.0); Mean Cell Volume 89.6 fL (80.0-100.0); Mean Corpuscular HGB Conc 31.2 g/dL (31.0-36.0); Monocytes # (Auto) 0.85 K/mcL (0.10-0.90); Monocytes % (Auto) 5.5 % (1.0-12.0); Neutrophils % (Auto) 90.9 % (38.0-78.0); Platelet Count 292 K/mcL (140-440); RBC 4.44 M/mcL (4.63-6.08); WBC 15.4 K/mcL (4.5-11.0)
--- NOTE | 2021-11-03 09:16 | Internal Med Progress Note ---
SUBJECTIVE Subjective Patient information: Note initiated : 11/03/21 at 9:09 am Service Date, if different from initiated Date: [] Patient: Ced Mejía a 71 y/o M admitted on 11/02/21 for shortness of breath. Chief Complaint: [shortness of breath] Interval history: History of present illness: Mr. Mejía is a 71 year old M history of squamous cell carcinoma status post lobectomy of the left lower lobe, skin cancer, brain cancer, COPD on oxygen ther apy up to 3.5 L/min, obstructive sleep apnea on CPAP, chronic kidney disease, essential hypertension's, mixed dyslipidemia, morbid obesity, hypothyroidism, presenting with 2-day history of acute onset shortness of breath. Patient started to have acute onset shortness of breath since yesterday night. He is also complaining of cough with hemoptysis. Is also complaining of respiratory wheezings. He denies any chest pain or chest tightness. He denies any anxiety. He denies any fever, chills, or diaphoresis. He is unaware of the history of heart failure although he stated that he had cardiac coronary stent placement years ago. He denies any unintentional weight gain. He is complaining of mild bilateral legs pitting edema. He denies any change in his appetite. Vital signs at ED presentation significant for oxygen desaturating to the upper 80s on home oxygen. Tachypnea with rate of breathing in the mid 20s. Rest of the vital signs within normal limits. Labs significant for leukocytosis with WBC 15.4. Serum troponin level 0.04 followed by 0.03. BNP 2040. [place] negative. [place] pending. Chest x-ray showing 7 cm mass versus masslike infiltrate in the right medial lung base. 11/03: On 13L/min oxygen. Was on CPAP overnight. Afebrile overnight. CT chest w/o from 11/05 showed 6cm stellate mass in the right infrahilar region including the right middle lobe bronchus with complete right middle lobe atelectasis suspicious for primary lung carcinoma. Also mildly enlarged lymph nodes. c/o mild SOB. c/o productive cough with yellow sputum. Denies wheezing. Denies chest pain. Denies fever, chills, or sweating. Constitutional Vitals: Vital Signs Temp Pulse Resp BP Pulse Ox 36.1 C L 72 16 130/79 96 11/03/21 08:38 11/03/21 07:20 11/03/21 08:38 11/03/21 08:38 11/03/21 08:38 Period Temp Pulse Resp BP Sys/Vazquez Pulse Ox Last 24 Hr 36.1 C-36.9 C 68-84 16-34 94-183/57-141 88-98 Intake and Output 11/02/21 11/03/21 11/03/21 21:59 05:59 13:59 Intake Total 1440 Output Total 1100 550 Balance -1100 890 Weight 136.803 kg Intake & Output: Intake & Output 11/02/21 11/03/21 11/03/21 21:59 05:59 13:59 Intake Total 1440 Output Total 1100 550 Balance -1100 890 Weight 136.803 kg Intake: Oral 1440 Output: Void Amount 1100 550 Other: Urine Appearance Clear Clear Clear Urine Color Bright Yellow Bright Yellow Bright Yellow Urine Odor Normal Normal Head Head exam: Present atraumatic and normal inspection Eye Eye exam: Present normal appearance ENT ENT exam: Present mucous membranes moist, normal exam and normal external ear exam Additional comments: High flow oxygen in place Neck Neck exam: Present normal inspection Respiratory Respiratory exam: Present normal respiratory exam, decreased breath sounds, rhonchi and wheezes Cardiovascular Cardiovascular exam: Present normal rate and rhythm GI/Abdominal GI/Abdominal exam: Present normal bowel sounds Back Exam Back exam: Present normal inspection Neurological Exam Neurological exam: Present alert and oriented X3 Skin Skin exam: Present intact and warm OBJ DATA Labs CBC & Chem 7: 11/02/21 08:24 11/02/21 08:24 Labs: Abnormal Lab Results 11/02/21 11/02/21 11/02/21 18:07 12:01 10:53 WBC Hgb MCHC RDW Neut % (Auto) Lymph % (Auto) Lymph # (Auto) Day # (Auto) Absolute Neutrophils PT INR BUN Creatinine Glucose Total Bilirubin Troponin T 0.03 H 0.03 H NT-Pro-B Natriuret Pep Urine Mucus Few A 11/02/21 11/02/21 11/02/21 08:24 08:24 08:24 WBC 15.4 H Hgb 12.7 L MCHC 30.9 L RDW 17.9 H Neut % (Auto) 86.5 H Lymph % (Auto) 4.2 L Lymph # (Auto) 0.65 L Day # (Auto) 1.14 H Absolute Neutrophils 13.31 H PT INR BUN 29 H Creatinine 1.8 H Glucose 136 H Total Bilirubin 1.2 H Troponin T 0.04 H* NT-Pro-B Natriuret Pep 2040.0 H Urine Mucus 11/02/21 08:05 WBC Hgb MCHC RDW Neut % (Auto) Lymph % (Auto) Lymph # (Auto) Day # (Auto) Absolute Neutrophils PT 15.3 H INR 1.2 H BUN Creatinine Glucose Total Bilirubin Troponin T NT-Pro-B Natriuret Pep Urine Mucus Meds: Medications Acetaminophen (Acetaminophen 325 Mg Tablet) 1,000 mg PO BID [facility]; Protocol Albuterol/Ipratropium (Ipratropium/Albuterol 3 Ml Ampul.Neb) 3 ml NEB Q4HRT [facility] Last Admin: 11/03/21 07:30 Dose: 3 ml Documented by: Albuterol/Ipratropium (Ipratropium/Albuterol 3 Ml Ampul.Neb) 3 ml NEB Q2HP PRN PRN Reason: Wheezing Aspirin (Aspirin 81 Mg Tab.Chew) 81 mg PO DAILY [facility] Atorvastatin Calcium (Atorvastatin 40 Mg Tablet) 40 mg PO HS [facility] Bisoprolol Fumarate (Bisoprolol 5 Mg Tablet) 10 mg PO DAILY [facility] Calcium Carbonate/Glycine (Calcium Carbonate 500 Mg Tab.Chew) 1,000 mg CHEWED Q4HP PRN PRN Reason: Dyspepsia Ceftriaxone Sodium (Ceftriaxone 1 Gm Vial) 1 gm IV DAILY [facility] Cyanocobalamin (Cyanocobalamin (Vitamin B-12) 500 Mcg Tablet) 2,500 mcg PO DAILY [facility] Docusate Sodium (Docusate Sodium 100 Mg Capsule) 100 mg PO BID [facility] Last Admin: 11/02/21 21:52 Dose: Not Given Documented by: Famotidine (Famotidine 20 Mg Tablet) 40 mg PO HS [facility] Ferrous Sulfate (Ferrous Sulfate 325 Mg Tablet) 325 mg PO QAC [facility] Fluticasone Propionate (Fluticasone Propionate [place].Dimitry) 2 spray NS DAILY [facility] Folic Acid (Folic Acid 1 Mg Tablet) 1 mg PO QDAY [facility] Furosemide (Furosemide 20 Mg/2 Ml Vial) 20 mg IV BIDD [facility] Last Admin: 11/02/21 15:52 Dose: 20 mg Documented by: Guaifenesin (Guaifenesin 600 Mg Tab.Sr.12h) 600 mg PO BID [facility] Heparin Sodium (Porcine) (Heparin 5,000 Unit/Ml Vial) 5,000 unit SQ Q12 [facility] Last Admin: 11/02/21 21:52 Dose: 5,000 unit Documented by: Hydralazine HCl (Hydralazine 20 Mg/Ml Vial) 10 mg IV Q4HP PRN PRN Reason: Hypertension Azithromycin 500 mg/ Dextrose 250 mls @ 250 mls/hr IV DAILY [facility]; Protocol Stop: 11/04/21 09:59 Lactulose (Lactulose 20 Gm/30 Ml Oral.Gabriella) 10 gm PO DAILYP PRN PRN Reason: Constipation Levothyroxine Sodium (Levothyroxine 75 Mcg Tablet) 75 mcg PO QAMAC [facility] Last Admin: 11/03/21 07:45 Dose: 75 mcg Documented by: Lisinopril (Lisinopril 10 Mg Tablet) 10 mg PO QDAY [facility] Ondansetron HCl (Ondansetron 4 Mg/2 Ml Vial) 4 mg IV Q4HP PRN; Protocol PRN Reason: Nausea And Vomiting Fluticasone Furoate- Vilanterol [Breo Ellipta] 100 Mcg- 25 Mcg/Dose Inhaler 1 dose INH DAILY [facility] Tiotropium [place] [ Spiriva Respimat] 2. 5 Mcg/Act Inhaler 1 dose INH DAILY [facility] Prednisone (Prednisone 20 Mg Tablet) 40 mg PO QAC [facility] Pyridoxine HCl (Pyridoxine 100 Mg Tablet) 250 mg PO DAILY [facility] Senna (Sennosides 1 Tablet) 2 tab PO HSP PRN PRN Reason: Constipation Sodium Chloride (0.9 % Sodium Chloride 10 Ml Syringe) 10 ml IV Q8 [facility] Last Admin: 11/03/21 05:42 Dose: 10 ml Documented by: Trazodone HCl (Trazodone Hcl 100 Mg Tablet) 100 mg PO HS [facility] Vitamin D (Vitamin D3 25 Mcg Tablet) 50 mcg PO DAILY [facility] A/P Assessment and plan (1) JOSSELIN on CPAP: Status: Chronic (2) Acute respiratory failure with hypoxia: Status: Acute (3) COPD exacerbation: Status: Acute (4) Lung mass: Status: Acute (5) GERD (gastroesophageal reflux disease): Status: Chronic Qualifiers: Esophagitis presence: esophagitis presence not specified Qualified Code(s): K21.9 - Gastro-esophageal reflux disease without esophagitis (6) Morbid obesity: Status: Chronic (7) Essential hypertension: Status: Chronic (8) Hyperlipidemia: Status: Chronic (9) Hypothyroidism: Status: Chronic (10) Acute and chronic respiratory failure with hypoxia: Status: Acute Narrative A/P Narrative: Assessment and Plans: 1. Acute on chronic respiratory failure with hypoxia: DDx: COPD exacerbation vs CHF exacerbation vs community acquired pneumonia vs recurrence of lung cancer vs CoVID pneumonia Inpatient PCU telemetry Isolation: airborne and contact, while waiting for [place] results BiPAP ABG Supplemental oxygen therapy titrate to achieve spo2>=88% given COPD-er, currently on high flow oxygen 13L/min COPD exacerbation: Prednisone DuoNEB NEB q4hr scheduled DuoNEB NEB q2hr PRN wheezing Spiriva and Breo Azithromycin CHF with exacerbation: Intake and output Daily weight 2L/day fluid restriction Lasix 20mg IV BID Beta jahaira Lisinopril 2D echocardiogram, results pending CAP: Rocephin Zithromax cbc w/ auto diff in the [place] to trend WBC Blood culture no growth to date Sputum culture no growth to date Recurrence of lung cancer: f/u CT chest w/o contrast to better delineate the 7cm mass seen in the [address] chest w/o from 11/05 showed 6cm stellate mass in the right infrahilar region including the right middle lobe bronchus with complete right middle lobe atelectasis suspicious for primary lung carcinoma. Also mildly enlarged lymph no juan f.-->spoke with radiology, will perform CT guided lung biopsy. Will eventually need PET/CT whole body for staging purposes JOSSELIN on CPAP: Currently on BiPAP 2. Morbid obesity BMI 45: [employer] patient on life style modifications including healthy diet and regular exercise in order to lose weight 3. Essential HTN: Currently normotensive Lasix 20mg IV BID Beta jahaira Lisinopril Hydralazine 10mg IV q4hr PRN SBp>=180 and/or DBP>=110mmHg 4. Mixed dyslipidemia: Continue statin therapy 5. GERD: Continue Famotidine 6. Hypothyroidism: Continue oral thyroid replacement therapy 7. CKD III: Current serum Cr level at baseline Avoid nephrotoxic agents Saline lock with Lasix CMP in the morning to trend kidney functions 8. Elevated troponin-i level: Serial troponin trend GI ppx: Famotidine DVT ppx: Heparin Code status: Full Prognosis: guarded Disposition: inpatient PCU telemetry Time Spent With Patient Time: Total time spent is greater than 50% in coordination of care (as documented) at patient's floor/unit and/or counseling patient: Total time spent with greater than 50% in coordination of care (as documented) at patient's floor/unit and/or counseling patient:: Greater than 35 minutes QUALITY VTE Deep Vein Thrombosis/Pulmonary Embolism Present on Admission: No
[2021-11-03 09:39] LABS: ALT/SGPT 27 U/L (<40); AST/SGOT 21 U/L (<40); Albumin 3.8 gm/dL (3.2-5.2); Albumin/Globulin Ratio 1.2 (1.0-2.3); Alkaline Phosphatase 113 U/L (39-117); Blood Urea Nitrogen 36 mg/dL (8-23); Calcium 9.6 mg/dL (8.6-10.4); Carbon Dioxide 23 mmol/L (22-30); Chloride 104 mmol/L (96-108); Globulin 3.2 gm/dL (2.2-3.7); Glomerular Filtration Rate 39; Glucose 153 mg/dL (70-105); Phosphorous 3.2 mg/dL (2.5-4.5)
[2021-11-03] MEDS: LISINOPRIL 10 MG TABLET PO SCH (10:55)
[2021-11-03] MEDS: cefTRIAXone 1 GM VIAL IV SCH (10:55)
[2021-11-03] MEDS: CYANOCOBALAMIN (VITAMIN B-12) 500 MCG TABLET PO SCH (10:55)
[2021-11-03] MEDS: VITAMIN D3 25 MCG TABLET PO SCH (10:55)
[2021-11-03] MEDS: predniSONE 20 MG TABLET PO SCH (10:55)
[2021-11-03] MEDS: FOLIC ACID 1 MG TABLET PO SCH (10:56)
[2021-11-03] MEDS: DOCUSATE SODIUM 100 MG CAPSULE PO SCH ×2 (10:56→21:52)
[2021-11-03] MEDS: HEPARIN 5,000 UNIT/ML VIAL SQ SCH ×2 (10:56→21:52)
[2021-11-03] MEDS: FUROSEMIDE 20 MG/2 ML VIAL IV SCH ×2 (10:56→15:08)
[2021-11-03] MEDS: FERROUS SULFATE 325 MG TABLET PO SCH (10:56)
[2021-11-03] MEDS: FLUTICASONE FUROATE VILANTEROL INH SCH (10:57)
[2021-11-03] MEDS: FLUTICASONE PROPIONATE SPRAY.NAS NS SCH (10:57)
[2021-11-03] MEDS: Tiotropium Bromide [Spiriva Respimat] 2.5 mcg/act Inhaler INH SCH (10:57)
[2021-11-03] MEDS: ACETAMINOPHEN 325 MG TABLET PO SCH (10:58)
[2021-11-03] MEDS: BISOPROLOL 5 MG TABLET PO SCH (11:33)
[2021-11-03] MEDS ORDERED: NON FORMULARY MEDICATION 1 DOSE MISCELL (Acetaminophen 1,000 MG) PO SCH (21:00)
[2021-11-03] MEDS ORDERED: FAMOTIDINE 40 MG PO SCH (21:00)
[2021-11-03] MEDS ORDERED: traZODone HCL 100 MG TABLET PO SCH (21:00)
[2021-11-03] MEDS: FAMOTIDINE 20 MG TABLET PO SCH (21:52)
[2021-11-03] MEDS: ATORVASTATIN 40 MG TABLET PO SCH (21:52)
[2021-11-04] MEDS: ACETAMINOPHEN 325 MG TABLET PO SCH ×3 (00:19→23:59)
[2021-11-04] MEDS: traZODone HCL 100 MG TABLET PO SCH ×2 (00:19→23:59)
[2021-11-04] MEDS: 0.9 % SODIUM CHLORIDE 10 ML SYRINGE IV SCH ×3 (05:30→21:51)
[2021-11-04] MEDS: IPRATROPIUM/ALBUTEROL 3 ML AMPUL.NEB NEB SCH ×6 (05:30→23:35)
[2021-11-04] MEDS: LEVOTHYROXINE 75 MCG TABLET PO SCH (07:09)
[2021-11-04 07:56] LABS: Basophils # (Auto) 0.04 K/mcL (0.00-0.30); Basophils % (Auto) 0.2 % (0.0-2.0); Eosinophils # (Auto) 0.01 K/mcL (0.00-0.70); Eosinophils % (Auto) 0.1 % (0.0-7.0); Hematocrit 36.6 % (40.1-51.0); Hemoglobin 11.5 g/dL (13.7-17.5); Lymphocytes # (Auto) 0.96 K/mcL (1.50-4.80); Lymphocytes % (Auto) 5.6 % (15.5-49.0); Mean Cell Volume 86.9 fL (80.0-100.0); Mean Corpuscular HGB Conc 31.4 g/dL (31.0-36.0); Mean Platelet Volume 10.2 fL (7.4-10.4); Monocytes # (Auto) 1.22 K/mcL (0.10-0.90); Monocytes % (Auto) 7.1 % (1.0-12.0); Platelet Count 297 K/mcL (140-440); RBC 4.21 M/mcL (4.63-6.08); Red Cell Distribution Width 18.3 % (11.5-14.5); WBC 17.2 K/mcL (4.5-11.0)
[2021-11-04] MEDS: VITAMIN D3 25 MCG TABLET PO SCH (08:36)
[2021-11-04] MEDS: FERROUS SULFATE 325 MG TABLET PO SCH (08:36)
[2021-11-04] MEDS: guaiFENesin 600 MG TAB.SR.12H PO SCH ×2 (08:36→21:50)
[2021-11-04] MEDS: DOCUSATE SODIUM 100 MG CAPSULE PO SCH ×2 (08:36→21:50)
[2021-11-04] MEDS: predniSONE 20 MG TABLET PO SCH (08:36)
[2021-11-04] MEDS: LISINOPRIL 10 MG TABLET PO SCH (08:36)
[2021-11-04] MEDS: CYANOCOBALAMIN (VITAMIN B-12) 500 MCG TABLET PO SCH (08:37)
[2021-11-04] MEDS: FOLIC ACID 1 MG TABLET PO SCH (08:38)
[2021-11-04] MEDS: FLUTICASONE PROPIONATE SPRAY.NAS NS SCH (08:38)
[2021-11-04] MEDS: HEPARIN 5,000 UNIT/ML VIAL SQ SCH ×2 (08:38→21:51)
[2021-11-04] MEDS: Tiotropium Bromide [Spiriva Respimat] 2.5 mcg/act Inhaler INH SCH (08:38)
[2021-11-04] MEDS: FUROSEMIDE 20 MG/2 ML VIAL IV SCH (08:39)
[2021-11-04] MEDS: AZITHROMYCIN 500 MG in DEXTROSE 5% IN WATER 250 ML IV SCH (08:40)
[2021-11-04] MEDS ORDERED: NON FORMULARY MEDICATION 1 DOSE MISCELL (Aspirin 81 mg Tablet) PO SCH (09:00)
[2021-11-04] MEDS ORDERED: NON FORMULARY MEDICATION 1 DOSE MISCELL (Tiotropium Bromide [Spiriva Respimat] 2.5 mcg/act INHALATION SCH (09:00)
[2021-11-04 09:33] LABS: ALT/SGPT 50 U/L (<40); AST/SGOT 33 U/L (<40); Albumin 3.8 gm/dL (3.2-5.2); Albumin/Globulin Ratio 1.3 (1.0-2.3); Alkaline Phosphatase 101 U/L (39-117); Bilirubin,Total 0.6 mg/dL (0.1-1.0); Blood Urea Nitrogen 45 mg/dL (8-23); Calcium 9.4 mg/dL (8.6-10.4); Carbon Dioxide 22 mmol/L (22-30); Chloride 101 mmol/L (96-108); Glomerular Filtration Rate 39; Glucose 121 mg/dL (70-105); Phosphorous 3.7 mg/dL (2.5-4.5)
[2021-11-04] MEDS: FLUTICASONE FUROATE VILANTEROL INH SCH (09:47)
--- NOTE | 2021-11-04 11:02 | Internal Med Progress Note ---
SUBJECTIVE Subjective Patient information: Note initiated : 11/04/21 at 10:55 am Service Date, if different from initiated Date: [] Patient: Ced Mejía a 71 y/o M admitted on 11/02/21 for shortness of breath. Chief Complaint: [] Interval history: History of present illness: Mr. Mejía is a 71 year old M history of squamous cell carcinoma status post lobectomy of the left lower lobe, skin cancer, brain cancer, COPD on oxygen therapy up to 3.5 L/min, obstructive sleep apnea on CPAP, chronic kidney disease, essential hypertension's, mixed dyslipidemia, morbid obesity, hypothyroidism, presenting with 2-day history of acute onset shortness of tara th. Patient started to have acute onset shortness of breath since yesterday night. He is also complaining of cough with hemoptysis. Is also complaining of respiratory wheezings. He denies any chest pain or chest tightness. He denies any anxiety. He denies any fever, chills, or diaphoresis. He is unaware of the history of heart failure although he stated that he had cardiac coronary stent placement years ago. He denies any unintentional weight gain. He is complaining of mild bilateral legs pitting edema. He denies any change in his appetite. Vital signs at ED presentation significant for oxygen desaturating to the upper 80s on home oxygen. Tachypnea with rate of breathing in the mid 20s. Rest of the vital signs within normal limits. Labs significant for leukocytosis with WBC 15.4. Serum troponin level 0.04 followed by 0.03. BNP 2040. [place] negative. [place] pending. Chest x-ray showing 7 cm mass versus masslike infiltrate in the right medial lung base. 11/03: On 13L/min oxygen. Was on CPAP overnight. Afebrile overnight. CT chest w/o from 11/05 showed 6cm stellate mass in the right infrahilar region including the right middle lobe bronchus with complete right middle lobe atelectasis suspicious for primary lung carcinoma. Also mildly enlarged lymph nodes. c/o mi ld SOB. c/o productive cough with yellow sputum. Denies wheezing. Denies chest pain. Denies fever, chills, or sweating. 11/04: Dr. Sam saw patient last night 11/03, decided to hold Aspirin and arrange for bronchoscopy with biopsy next week outpatient. Afebrile overnight. Currently on 6L/min oxygen. c/o mild SOB. Denies cough or wheezing. Denies chest pain. Denies fever, chills, or sweating. Denies anxiety. Still on antibiotics Rocephin and Zithromax. Cultures no growth to date. Constitutional Vitals: Vital Signs Temp Pulse Resp BP Pulse Ox 36.6 C 77 16 105/64 94 11/04/21 08:01 11/04/21 08:09 11/04/21 10:14 11/04/21 10:14 11/04/21 10:14 Period Temp Pulse Resp BP Sys/Vazquez Pulse Ox Last 24 Hr 36.1 C-36.6 C 64-77 13-26 105-140/62-102 91-98 Intake and Output 11/03/21 11/04/21 11/04/21 21:59 05:59 13:59 Intake Total 150 1200 330 Output Total 1100 825 Balance -950 375 330 Weight 136.803 kg Intake & Output: Intake & Output 11/03/21 11/04/21 11/04/21 21:59 05:59 13:59 Intake Total 150 1200 330 Output Total 1100 825 Balance -950 375 330 Weight 136.803 kg Intake: Oral 150 1200 330 Output: Void Amount 1100 825 Other: Meal Dinner Breakfast Percent of Meal Consumed 100% 100% Feeding Ability Independent Independent Urine Appearance Clear Clear Urine Color Bright Yellow Dark Yellow Urine Odor Normal Strong General appearance: cooperative, morbidly obese and no acute distress Head Head exam: Present atraumatic and normal inspection Eye Eye exam: Present normal appearance ENT ENT exam: Present mucous membranes moist, normal exam and normal external ear exam Additional comments: Nasal cannula in place Neck Neck exam: Present normal inspection Respiratory Respiratory exam: Present normal respiratory exam and decreased breath sounds Cardiovascular Cardiovascular exam: Present normal rate and rhythm GI/Abdominal GI/Abdominal exam: Present normal bowel sounds Back Exam Back exam: Present normal inspection Neurological Exam Neurological exam: Present alert and oriented X3 Skin Skin exam: Present intact and warm OBJ DATA Labs CBC & Chem 7: 11/04/21 05:33 11/04/21 05:33 Labs: Abnormal Lab Results 11/04/21 11/04/21 11/03/21 05:33 05:33 05:21 WBC 17.2 H RBC 4.21 L Hgb 11.5 L Hct 36.6 L MCHC RDW 18.3 H Neut % (Auto) 87.0 H Lymph % (Auto) 5.6 L Lymph # (Auto) 0.96 L [place] # (Auto) 1.22 H Absolute Neutrophils 14.99 H PT INR Anion Gap 17.0 H BUN 45 H 36 H Creatinine 1.7 H 1.7 H Glucose 121 H 153 H Magnesium 2.7 H 2.8 H Total Bilirubin ALT 50 H Troponin T NT-Pro-B Natriuret Pep Urine Mucus 11/03/21 11/02/21 11/02/21 05:21 18:07 12:01 WBC 15.4 H RBC 4.44 L Hgb 12.4 L Hct 39.8 L MCHC RDW 18.0 H Neut % (Auto) 90.9 H Lymph % (Auto) 3.5 L Lymph # (Auto) 0.54 L [place] # (Auto) Absolute Neutrophils 14.02 H PT INR Anion Gap BUN Creatinine Glucose Magnesium Total Bilirubin ALT Troponin T 0.03 H 0.03 H NT-Pro-B Natriuret Pep Urine Mucus 11/02/21 11/02/21 11/02/21 10:53 08:24 08:24 WBC 15.4 H RBC Hgb 12.7 L Hct MCHC 30.9 L RDW 17.9 H Neut % (Auto) 86.5 H Lymph % (Auto) 4.2 L Lymph # (Auto) 0.65 L [place] # (Auto) 1.14 H Absolute Neutrophils 13.31 H PT INR Anion Gap BUN Creatinine Glucose Magnesium Total Bilirubin ALT Troponin T 0.04 H* NT-Pro-B Natriuret Pep Urine Mucus Few A 11/02/21 11/02/21 08:24 08:05 WBC RBC Hgb Hct MCHC RDW Neut % (Auto) Lymph % (Auto) Lymph # (Auto) [place] # (Auto) Absolute Neutrophils PT 15.3 H INR 1.2 H Anion Gap BUN 29 H Creatinine 1.8 H Glucose 136 H Magnesium Total Bilirubin 1.2 H ALT Troponin T NT-Pro-B Natriuret Pep 2040.0 H Urine Mucus Meds: Medications Acetaminophen (Acetaminophen 325 Mg Tablet) 1,000 mg PO BID [facility]; Protocol Last Admin: 11/04/21 08:37 Dose: 1,000 mg Documented by: Albuterol/Ipratropium (Ipratropium/Albuterol 3 Ml Ampul.Neb) 3 ml NEB Q4HRT [facility] Last Admin: 11/04/21 07:57 Dose: 3 ml Documented by: Albuterol/Ipratropium (Ipratropium/Albuterol 3 Ml Ampul.Neb) 3 ml NEB Q2HP PRN PRN Reason: Wheezing Atorvastatin Calcium (Atorvastatin 40 Mg Tablet) 40 mg PO [facility] Last Admin: 11/03/21 21:52 Dose: 40 mg Documented by: Bisoprolol Fumarate (Bisoprolol 5 Mg Tablet) 10 mg PO DAILY [facility] Last Admin: 11/03/21 11:33 Dose: 10 mg Documented by: Calcium Carbonate/Glycine (Calcium Carbonate 500 Mg Tab.Chew) 1,000 mg CHEWED Q4HP PRN PRN Reason: Dyspepsia Ceftriaxone Sodium (Ceftriaxone 1 Gm Vial) 1 gm IV DAILY [facility] Last Admin: 11/03/21 10:55 Dose: 1 gm Documented by: Cyanocobalamin (Cyanocobalamin (Vitamin B-12) 500 Mcg Tablet) 2,500 mcg PO DAILY [facility] Last Admin: 11/04/21 08:37 Dose: 2,500 mcg Documented by: Docusate Sodium (Docusate Sodium 100 Mg Capsule) 100 mg PO BID [facility] Last Admin: 11/04/21 08:36 Dose: 100 mg Documented by: Famotidine (Famotidine 20 Mg Tablet) 40 mg PO [facility] Last Admin: 11/03/21 21:52 Dose: 40 mg Documented by: Ferrous Sulfate (Ferrous Sulfate 325 Mg Tablet) 325 mg PO [facility] Last Admin: 11/04/21 08:36 Dose: 325 mg Documented by: Fluticasone Propionate (Fluticasone Propionate [place].Dimitry) 2 spray NS DAILY [facility] Last Admin: 11/04/21 08:38 Dose: 2 spray Documented by: Folic Acid (Folic Acid 1 Mg Tablet) 1 mg PO QDAY [facility] Last Admin: 11/04/21 08:38 Dose: 1 mg Documented by: Guaifenesin (Guaifenesin 600 Mg Tab.Sr.12h) 600 mg PO BID [facility] Last Admin: 11/04/21 08:36 Dose: 600 mg Documented by: Heparin Sodium (Porcine) (Heparin 5,000 Unit/Ml Vial) 5,000 unit SQ Q12 [facility] Last Admin: 11/04/21 08:38 Dose: 5,000 unit Documented by: Hydralazine HCl (Hydralazine 20 Mg/Ml Vial) 10 mg IV Q4HP PRN PRN Reason: Hypertension Lactulose (Lactulose 20 Gm/30 Ml Oral.Gabriella) 10 gm PO DAILYP PRN PRN Reason: Constipation Levothyroxine Sodium (Levothyroxine 75 Mcg Tablet) 75 mcg PO QAMAC [facility] Last Admin: 11/04/21 07:09 Dose: 75 mcg Documented by: Lisinopril (Lisinopril 10 Mg Tablet) 10 mg PO QDAY [facility] Last Admin: 11/04/21 08:36 Dose: 10 mg Documented by: Ondansetron HCl (Ondansetron 4 Mg/2 Ml Vial) 4 mg IV Q4HP PRN; Protocol PRN Reason: Nausea And Vomiting Fluticasone Furoate- Vilanterol [Breo Ellipta] 100 Mcg- 25 Mcg/Dose Inhaler 1 dose INH DAILY [facility] Last Admin: 11/04/21 09:47 Dose: 1 dose Documented by: Tiotropium [place] [ Spiriva Respimat] 2. 5 Mcg/Act Inhaler 1 dose INH DAILY [facility] Last Admin: 11/04/21 08:38 Dose: 1 dose Documented by: Pyridoxine HCl (Pyridoxine 100 Mg Tablet) 250 mg PO DAILY [facility] Senna (Sennosides 1 Tablet) 2 tab PO HSP PRN PRN Reason: Constipation Sodium Chloride (0.9 % Sodium Chloride 10 Ml Syringe) 10 ml IV Q8 [facility] Last Admin: 11/04/21 05:30 Dose: 10 ml Documented by: Torsemide (Torsemide 10 Mg Tablet) 20 mg PO 0700,1200 [facility] Trazodone HCl (Trazodone Hcl 100 Mg Tablet) 100 mg PO HS [facility] Last Admin: 11/04/21 00:19 Dose: 100 mg Documented by: Vitamin D (Vitamin D3 25 Mcg Tablet) 50 mcg PO DAILY [facility] Last Admin: 11/04/21 08:36 Dose: 50 mcg Documented by: A/P Assessment and plan (1) JOSSELIN on CPAP: Status: Chronic (2) Acute respiratory failure with hypoxia: Status: Acute (3) COPD exacerbation: Status: Acute (4) Lung mass: Status: Acute (5) GERD (gastroesophageal reflux disease): Status: Chronic Qualifiers: Esophagitis presence: esophagitis presence not specified Qualified Code(s): K21.9 - Gastro-esophageal reflux disease without esophagitis (6) Morbid obesity: Status: Chronic (7) Essential hypertension: Status: Chronic (8) Hyperlipidemia: Status: Chronic (9) Hypothyroidism: Status: Chronic (10) Acute and chronic respiratory failure with hypoxia: Status: Acute Narrative A/P Narrative: Assessment and Plans: 1. Acute on chronic respiratory failure with hypoxia: DDx: COPD exacerbation vs CHF exacerbation vs community acquired pneumonia vs recurrence of lung cancer vs CoVID pneumonia Inpatient PCU telemetry [place] negative ABG Supplemental oxygen therapy titrate to achieve spo2>=88% given COPD-er, currently on 6L/min oxygen COPD, stable: d/c Prednisone DuoNEB NEB q4hr scheduled DuoNEB NEB q2hr PRN wheezing Spiriva and Breo Azithromycin CHF, stable: Intake and output Daily weight 2L/day fluid restriction d/c Lasix, resume Torsemide from home regimen Beta jahaira Lisinopril 2D echocardiogram, results pending CAP: Rocephin Zithromax cbc w/ auto diff in the [facility] to trend WBC Blood culture no growth to date Sputum culture no growth to date Recurrence of lung cancer: f/u CT chest w/o contrast to better delineate the 7cm mass seen in the [address] chest w/o from 11/05 showed 6cm stellate mass in the right infrahilar region including the right middle lobe bronchus with complete right middle lobe atele ctasis suspicious for primary lung carcinoma. Also mildly enlarged lymph nodes. Dr. Sam saw patient last night 11/03, decided to hold Aspirin and arrange for bronchoscopy with biopsy next week outpatient. Will eventually need PET/CT whole body for staging purposes, if biopsy results shows that is malignant. JOSSELIN on CPAP: Continue to monitor 2. 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 Essential HTN: Currently normotensive d/c Lasix, resume Torsemide from home regimen Beta jahaira Lisinopril Hydralazine 10mg IV q4hr PRN SBp>=180 and/or DBP>=110mmHg 4. Mixed dyslipidemia: Continue statin therapy 5. GERD: Continue Famotidine 6. Hypothyroidism: Continue oral thyroid replacement therapy 7. CKD III: Current serum Cr level at baseline Avoid nephrotoxic agents Saline lock with Torsemide CMP in the morning to trend kidney functions 8. Elevated troponin-i level: Serial troponin trend GI ppx: Famotidine DVT ppx: Heparin Code status: Full Prognosis: guarded Disposition: inpatient PCU telemetry Time Spent With Patient Time: Total time spent is greater than 50% in coordination of care (as documented) at patient's floor/unit and/or counseling patient: Total time spent with greater than 50% in coordination of care (as documented) at patient's floor/unit and/or counseling patient:: Greater than 35 minutes QUALITY VTE Deep Vein Thrombosis/Pulmonary Embolism Present on Admission: No
[2021-11-04] MEDS: BISOPROLOL 5 MG TABLET PO SCH (11:16)
[2021-11-04] MEDS: cefTRIAXone 1 GM VIAL IV SCH (11:16)
[2021-11-04] MEDS: TORSEMIDE 10 MG TABLET PO SCH (12:45)
--- NOTE | 2021-11-04 20:30 | Consultation ---
DATE OF CONSULTATION: 11/04/2021 REQUESTING PHYSICIAN: Remigio Carl MD CONSULTING PHYSICIAN: Damion Sam MD HISTORY OF PRESENT ILLNESS: The patient is a 71-year-old gentleman, who presented to the emergency room on 11/02/2021 with a chief complaint of cough, exacerbation of COPD, and some hemoptysis. He was seen and evaluated and found to be having an exacerbation of COPD and a lung mass measured approximately 7 cm in the right hilum with a possible postobstructive pneumonia. He was considered a candidate for admission. The patient is known to the pulmonary clinic with chronic obstructive lung disease and history of previous pulmonary carcinoma. In addition to his chronic obstructive lung disease, he also has known sleep apnea and on CPAP therapy. Evaluation of the patient today does demonstrate abnormal findings as noted above in the record. The patient has been initiated on antibiotic therapy for postobstructive pneumonia. The CT scan of the chest is reviewed and looks as if bronchoscopy might help elucidate the cause of the radiographic changes. The patient indicates that he has been doing reasonably well until just a month or so prior and had noted increased difficulty with shortness of breath, cough, sputum production, and finally worsening that caused him to present to the emergency room. The patient denies negrita chest pain, nausea, vomiting, diaphoresis, or cardiac issues at this time. He does have some degree of chest tightness with his respiratory issues. He also has had some gradual increasing dependent edema and appears to be in a greater degree of heart failure today. REVIEW OF SYSTEMS: Otherwise, noncontributory. PHYSICAL EXAMINATION: GENERAL: Pleasant and conversational gentleman after his hospital care to this point in no acute distress, conversational. HEENT: Head is atraumatic and normocephalic. NECK: Thick, but supple. LUNGS: Have significantly decreased breath sounds in all lung dal[place] with dullness in the right lung and decreased breath sounds consistent with his radiographic findings. HEART: Regular S1, S2. There is no gallop, rub, jugular venous distention. There is fairly profound edema. NEUROLOGIC: Nonfocal. ABDOMEN: Soft. LABORATORY DATA: Collected shows a white count at 17,000 today on the and elevated at the time of presentation at 15.4. Troponin has had some minimal elevations. BNP elevated at 2039. Chemistries demonstrate a BUN of 45 and a creatinine of 1.7, magnesium slightly high at 2.7. Imaging is as noted. IMPRESSION: The patient with known chronic obstructive lung disease and sleep apnea with history of left-sided lung cancer, previously wedge resected, now with right hilar changes consistent with a new or recurrent carcinoma. At this time, the patient needs treatment for what is likely a postobstructive pneumonitis as well as dyspnea from heart failure. Once he is clinically more stabale with CHF and acute inflamation and he is away from his aspirin for a week,I will consider bronchoscopy next week. Please inform to the patient in 48 to 36 hours from discharge that we may reevaluate his situation and look at a window for consideration of bronchoscopy. Thank you for the opportunity to participate in the care of this pleasant gentleman. Addendum: 11/05/2021, I have entered an order to determine INR in pre-bronch evaluation. KJP:sandra Job ID: [id number] Doc ID: [id number] Damion Sam MD MTDD
[2021-11-04] MEDS: FAMOTIDINE 20 MG TABLET PO SCH (21:50)
[2021-11-04] MEDS: ATORVASTATIN 40 MG TABLET PO SCH (21:51)
[2021-11-05] MEDS: IPRATROPIUM/ALBUTEROL 3 ML AMPUL.NEB NEB SCH ×6 (03:44→23:11)
[2021-11-05] MEDS: 0.9 % SODIUM CHLORIDE 10 ML SYRINGE IV SCH ×3 (05:10→20:22)
[2021-11-05] MEDS: TORSEMIDE 10 MG TABLET PO SCH ×2 (07:42→12:13)
[2021-11-05] MEDS: LEVOTHYROXINE 75 MCG TABLET PO SCH (07:42)
[2021-11-05 08:17] LABS: Basophils # (Auto) 0.07 K/mcL (0.00-0.30); Basophils % (Auto) 0.5 % (0.0-2.0); Eosinophils # (Auto) 0.08 K/mcL (0.00-0.70); Eosinophils % (Auto) 0.6 % (0.0-7.0); Hematocrit 36.1 % (40.1-51.0); Lymphocytes # (Auto) 1.07 K/mcL (1.50-4.80); Lymphocytes % (Auto) 7.5 % (15.5-49.0); Mean Cell Volume 88.3 fL (80.0-100.0); Mean Corpuscular HGB Conc 30.5 g/dL (31.0-36.0); Mean Platelet Volume 10.2 fL (7.4-10.4); Monocytes # (Auto) 1.29 K/mcL (0.10-0.90); Monocytes % (Auto) 9.1 % (1.0-12.0); Neutrophils % (Auto) 82.3 % (38.0-78.0); Platelet Count 292 K/mcL (140-440); RBC 4.09 M/mcL (4.63-6.08); Red Cell Distribution Width 18.3 % (11.5-14.5); WBC 14.2 K/mcL (4.5-11.0)
[2021-11-05 08:44] LABS: ALT/SGPT 72 U/L (<40); AST/SGOT 40 U/L (<40); Albumin 3.5 gm/dL (3.2-5.2); Albumin/Globulin Ratio 1.3 (1.0-2.3); Alkaline Phosphatase 91 U/L (39-117); Bilirubin,Total 0.6 mg/dL (0.1-1.0); Blood Urea Nitrogen 53 mg/dL (8-23); Calcium 9.2 mg/dL (8.6-10.4); Carbon Dioxide 27 mmol/L (22-30); Chloride 104 mmol/L (96-108); Globulin 2.8 gm/dL (2.2-3.7); Glomerular Filtration Rate 34; Glucose 114 mg/dL (70-105); Phosphorous 3.7 mg/dL (2.5-4.5)
[2021-11-05] MEDS: BISOPROLOL 5 MG TABLET PO SCH (10:08)
[2021-11-05] MEDS: CYANOCOBALAMIN (VITAMIN B-12) 500 MCG TABLET PO SCH (10:09)
[2021-11-05] MEDS: VITAMIN D3 25 MCG TABLET PO SCH (10:09)
[2021-11-05] MEDS: HEPARIN 5,000 UNIT/ML VIAL SQ SCH ×2 (10:10→20:22)
[2021-11-05] MEDS: cefTRIAXone 1 GM VIAL IV SCH (10:10)
[2021-11-05] MEDS: DOCUSATE SODIUM 100 MG CAPSULE PO SCH ×2 (10:10→20:22)
[2021-11-05] MEDS: guaiFENesin 600 MG TAB.SR.12H PO SCH ×2 (10:10→20:22)
[2021-11-05] MEDS: FOLIC ACID 1 MG TABLET PO SCH (10:10)
[2021-11-05] MEDS: LISINOPRIL 10 MG TABLET PO SCH (10:10)
[2021-11-05] MEDS: FERROUS SULFATE 325 MG TABLET PO SCH (10:10)
[2021-11-05] MEDS: ACETAMINOPHEN 500 MG TABLET PO SCH ×2 (10:23→20:21)
[2021-11-05] MEDS: ACETAMINOPHEN 325 MG TABLET PO SCH (10:34)
--- NOTE | 2021-11-05 11:46 | Internal Med Progress Note ---
SUBJECTIVE Subjective Patient information: Note initiated : 11/05/21 at 11:43 am Service Date, if different from initiated Date: [] Patient: Ced Mejía a 71 y/o M admitted on 11/02/21 for shortness of breath. Chief Complaint: [pneumonia] Interval history: History of present illness: Mr. 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 Patient started to have acute onset shortness of breath since yesterday night. He is also complaining of cough with hemoptysis. Is also complaining of respiratory wheezings. He denies any chest pain or chest tightness. He denies any anxiety. He denies any fever, chills, or diaphoresis. He is unaware of the history of heart failure although he stated that he had cardiac coronary stent placement years ago. He denies any unintentional weight gain. He is complaining of mild bilateral legs pitting edema. He denies any change in his appetite. Vital signs at ED presentation significant for oxygen desaturating to the upper 80s on home oxygen. Tachypnea with rate of breathing in the mid 20s. Rest of the vital signs within normal limits. Labs significant for leukocytosis with WBC 15.4. Serum troponin level 0.04 followed by 0.03. BNP 2040. [facility] negative. [facility] pending. Chest x-ray showing 7 cm mass versus masslike infiltrate in the right medial lung base. 11/03: On 13L/min oxygen. Was on CPAP overnight. Afebrile overnight. CT chest w/o from 11/05 showed 6cm stellate mass in the right infrahilar region including the right middle lobe bronchus with complete right middle lobe atelectasis suspicious for primary lung carcinoma. Also mildly enlarged lymph nodes. c/o mild SOB. c/o productive cough with yellow sputum. Denies wheezing. Denies chest pain. Denies fever, chills, or sweating. 11/04: Dr. Sam saw patient last night 11/03, decided to hold Aspirin and arrange for bronchoscopy with biopsy next week outpatient. Afebrile overnight. Currently on 6L/min oxygen. c/o mild SOB. Denies cough or wheezing. Denies chest pain. Denies fever, chills, or sweating. Denies anxiety. Still on antibiotics Rocephin and Zithromax. Cultures no growth to date. 11/05: Afebrile overnight. Currently on 4L/min oxygen. c/o mild SOB. c/o nonproductive cough. Denies wheezing. Denies chest pain. Denies fever, chills, or sweating. Denies anxiety. Still on antibiotics Rocephin and Zithromax. Cultures no growth to date. Constitutional Vitals: Vital Signs Temp Pulse Resp BP Pulse Ox 37.3 C H 75 14 111/43 93 11/05/21 07:03 11/05/21 10:54 11/05/21 10:54 11/05/21 10:30 11/05/21 10:54 Period Temp Pulse Resp BP Sys/Vazquez Pulse Ox Last 24 Hr 36.1 C-37.3 C 59-91 13-19 89-152/43-85 91-98 Intake and Output 11/04/21 11/05/21 11/05/21 21:59 05:59 13:59 Intake Total 930 440 Output Total 975 1000 200 Balance -45 -560 -200 Weight 140.069 kg Intake & Output: Intake & Output 11/04/21 11/05/21 11/05/21 21:59 05:59 13:59 Intake Total 930 440 Output Total 975 1000 200 Balance -45 -560 -200 Weight 140.069 kg Intake: Oral 930 440 Output: Void Amount 975 1000 200 Other: Meal Dinner Breakfast Percent of Meal Consumed 90 100% Feeding Ability Independent Independent Urine Appearance Clear Clear Clear Urine Color Straw Bright Yellow Dark Yellow Urine Odor Normal General appearance: cooperative, morbidly obese and no acute distress Head Head exam: Present atraumatic and normal inspection Eye Eye exam: Present normal appearance ENT ENT exam: Present mucous membranes moist, normal exam and normal external ear exam Additional comments: Nasal cannula in place Neck Neck exam: Present normal inspection Respiratory Respiratory exam: Present normal respiratory exam, decreased breath sounds and rhonchi; Absent wheezes Cardiovascular Cardiovascular exam: Present normal rate and rhythm GI/Abdominal GI/Abdominal exam: Present normal bowel sounds Back Exam Back exam: Present normal inspection Neurological Exam Neurological exam: Present alert and oriented X3 Skin Skin exam: Present intact and warm OBJ DATA Labs CBC & Chem 7: 11/05/21 06:17 11/05/21 06:17 Labs: Abnormal Lab Results 11/05/21 11/05/21 11/04/21 06:17 06:17 05:33 WBC 14.2 H RBC 4.09 L Hgb 11.0 L Hct 36.1 L MCHC 30.5 L RDW 18.3 H Neut % (Auto) 82.3 H Lymph % (Auto) 7.5 L Lymph # (Auto) 1.07 L [place] # (Auto) 1.29 H Absolute Neutrophils 11.69 H Anion Gap 17.0 H BUN 53 H 45 H Creatinine 1.9 H 1.7 H Glucose 114 H 121 H Magnesium 2.7 H AST 40 H ALT 72 H 50 H Troponin T Urine Mucus 11/04/21 11/03/21 11/03/21 05:33 05:21 05:21 WBC 17.2 H 15.4 H RBC 4.21 L 4.44 L Hgb 11.5 L 12.4 L Hct 36.6 L 39.8 L MCHC RDW 18.3 H 18.0 H Neut % (Auto) 87.0 H 90.9 H Lymph % (Auto) 5.6 L 3.5 L Lymph # (Auto) 0.96 L 0.54 L [place] # (Auto) 1.22 H Absolute Neutrophils 14.99 H 14.02 H Anion Gap BUN 36 H Creatinine 1.7 H Glucose 153 H Magnesium 2.8 H AST ALT Troponin T Urine Mucus 11/02/21 11/02/21 11/02/21 18:07 12:01 10:53 WBC RBC Hgb Hct MCHC RDW Neut % (Auto) Lymph % (Auto) Lymph # (Auto) [place] # (Auto) Absolute Neutrophils Anion Gap BUN Creatinine Glucose Magnesium AST ALT Troponin T 0.03 H 0.03 H Urine Mucus Few A Meds: Medications Acetaminophen (Acetaminophen 500 Mg Tablet) 1,000 mg PO BID [facility]; Protocol Last Admin: 11/05/21 10:23 Dose: 1,000 mg Documented by: Albuterol/Ipratropium (Ipratropium/Albuterol 3 Ml Ampul.Neb) 3 ml NEB Q4HRT [facility] Last Admin: 11/05/21 10:53 Dose: 3 ml Documented by: Albuterol/Ipratropium (Ipratropium/Albuterol 3 Ml Ampul.Neb) 3 ml NEB Q2HP PRN PRN Reason: Wheezing Atorvastatin Calcium (Atorvastatin 40 Mg Tablet) 40 mg PO HS [facility] Last Admin: 11/04/21 21:51 Dose: 40 mg Documented by: Bisoprolol Fumarate (Bisoprolol 5 Mg Tablet) 10 mg PO DAILY [facility] Last Admin: 11/05/21 10:08 Dose: 10 mg Documented by: Calcium Carbonate/Glycine (Calcium Carbonate 500 Mg Tab.Chew) 1,000 mg CHEWED Q4HP PRN PRN Reason: Dyspepsia Ceftriaxone Sodium (Ceftriaxone 1 Gm Vial) 1 gm IV DAILY [facility] Last Admin: 11/05/21 10:10 Dose: 1 gm Documented by: Cyanocobalamin (Cyanocobalamin (Vitamin B-12) 500 Mcg Tablet) 2,500 mcg PO DAILY [facility] Last Admin: 11/05/21 10:09 Dose: 2,500 mcg Documented by: Docusate Sodium (Docusate Sodium 100 Mg Capsule) 100 mg PO BID [facility] Last Admin: 11/05/21 10:10 Dose: 100 mg Documented by: Famotidine (Famotidine 20 Mg Tablet) 40 mg PO [facility] Last Admin: 11/04/21 21:50 Dose: 40 mg Documented by: Ferrous Sulfate (Ferrous Sulfate 325 Mg Tablet) 325 mg PO [facility] Last Admin: 11/05/21 10:10 Dose: 325 mg Documented by: Fluticasone Propionate (Fluticasone Propionate [place].Dimitry) 2 spray NS DAILY [facility] Last Admin: 11/04/21 08:38 Dose: 2 spray Documented by: Folic Acid (Folic Acid 1 Mg Tablet) 1 mg PO QDAY [facility] Last Admin: 11/05/21 10:10 Dose: 1 mg Documented by: Guaifenesin (Guaifenesin 600 Mg Tab.Sr.12h) 600 mg PO BID [facility] Last Admin: 11/05/21 10:10 Dose: 600 mg Documented by: Heparin Sodium (Porcine) (Heparin 5,000 Unit/Ml Vial) 5,000 unit SQ Q12 [facility] Last Admin: 11/05/21 10:10 Dose: 5,000 unit Documented by: Hydralazine HCl (Hydralazine 20 Mg/Ml Vial) 10 mg IV Q4HP PRN PRN Reason: Hypertension Lactulose (Lactulose 20 Gm/30 Ml Oral.Gabriella) 10 gm PO DAILYP PRN PRN Reason: Constipation Levothyroxine Sodium (Levothyroxine 75 Mcg Tablet) 75 mcg PO QAMAC [facility] Last Admin: 11/05/21 07:42 Dose: 75 mcg Documented by: Lisinopril (Lisinopril 10 Mg Tablet) 10 mg PO QDAY [facility] Last Admin: 11/05/21 10:10 Dose: 10 mg Documented by: Ondansetron HCl (Ondansetron 4 Mg/2 Ml Vial) 4 mg IV Q4HP PRN; Protocol PRN Reason: Nausea And Vomiting Fluticasone Furoate- Vilanterol [Breo Ellipta] 100 Mcg- 25 Mcg/Dose Inhaler 1 dose INH DAILY [facility] Last Admin: 11/04/21 09:47 Dose: 1 dose Documented by: Tiotropium [place] [ Spiriva Respimat] 2. 5 Mcg/Act Inhaler 1 dose INH DAILY [facility] Last Admin: 11/04/21 08:38 Dose: 1 dose Documented by: Pyridoxine HCl (Pyridoxine 100 Mg Tablet) 250 mg PO DAILY [facility] Senna (Sennosides 1 Tablet) 2 tab PO HSP PRN PRN Reason: Constipation Sodium Chloride (0.9 % Sodium Chloride 10 Ml Syringe) 10 ml IV Q8 [facility] Last Admin: 11/05/21 05:10 Dose: 10 ml Documented by: Torsemide (Torsemide 10 Mg Tablet) 20 mg PO 0700,1200 [facility] Last Admin: 11/05/21 07:42 Dose: 20 mg Documented by: Trazodone HCl (Trazodone Hcl 100 Mg Tablet) 100 mg PO HS [facility] Last Admin: 11/04/21 23:59 Dose: 100 mg Documented by: Vitamin D (Vitamin D3 25 Mcg Tablet) 50 mcg PO DAILY [facility] Last Admin: 11/05/21 10:09 Dose: 50 mcg Documented by: A/P Assessment and plan (1) JOSSELIN on CPAP: Status: Chronic (2) Acute respiratory failure with hypoxia: Status: Acute (3) COPD exacerbation: Status: Acute (4) Lung mass: Status: Acute (5) GERD (gastroesophageal reflux disease): Status: Chronic Qualifiers: Esophagitis presence: esophagitis presence not specified Qualified Code(s): K21.9 - Gastro-esophageal reflux disease without esophagitis (6) Morbid obesity: Status: Chronic (7) Essential hypertension: Status: Chronic (8) Hyperlipidemia: Status: Chronic (9) Hypothyroidism: Status: Chronic (10) Acute and chronic respiratory failure with hypoxia: Status: Acute Narrative A/P Narrative: Assessment and Plans: 1. Acute on chronic respiratory failure with hypoxia: DDx: COPD exacerbation vs CHF exacerbation vs community acquired pneumonia vs recurrence of lung cancer vs CoVID pneumonia Inpatient PCU telemetry [facility] negative ABG Supplemental oxygen therapy titrate to achieve spo2>=88% given COPD-er, currently on 4L/min oxygen COPD, stable: d/c Prednisone DuoNEB NEB q4hr scheduled DuoNEB NEB q2hr PRN wheezing Spiriva and Breo Azithromycin CHF, stable: Intake and output Daily weight 2L/day fluid restriction d/c Lasix, resume Torsemide from home regimen Beta jahaira Lisinopril 2D echocardiogram, results pending CAP: Rocephin Zithromax cbc w/ auto diff in the monring to trend WBC Blood culture no growth to date Sputum culture no growth to date Recurrence of lung cancer: f/u CT chest w/o contrast to better delineate the 7cm mass seen in the [address] chest w/o from 11/05 showed 6cm stellate mass in the right infrahilar region including the right middle lobe bronchus with complete right middle lobe at electasis suspicious for primary lung carcinoma. Also mildly enlarged lymph nodes. Dr. Sam saw patient last night 11/03, decided to hold Aspirin and arrange for bronchoscopy with biopsy next week outpatient. Will eventually need PET/CT whole body for staging purposes, if biopsy results shows that is malignant. JOSSELIN on CPAP: Continue to monitor 2. Morbid obesity BMI 45: [employer] patient on life style modifications including healthy diet and regular exercise in order to lose weight 3. Essential HTN: Currently normotensive d/c Lasix, resume Torsemide from home regimen Beta jahaira Lisinopril Hydralazine 10mg IV q4hr PRN SBp>=180 and/or DBP>=110mmHg 4. Mixed dyslipidemia: Continue statin therapy 5. GERD: Continue Famotidine 6. Hypothyroidism: Continue oral thyroid replacement therapy 7. CKD III: Current serum Cr level at baseline Avoid nephrotoxic agents Saline lock with Torsemide CMP in the morning to trend kidney functions 8. Elevated troponin-i level: Serial troponin trend GI ppx: Famotidine DVT ppx: Heparin Code status: Full Prognosis: guarded Disposition: inpatient PCU telemetry Time Spent With Patient Time: Total time spent is greater than 50% in coordination of care (as documented) at patient's floor/unit and/or counseling patient: Total time spent with greater than 50% in coordination of care (as documented) at patient's floor/unit and/or counseling patient:: Greater than 35 minutes QUALITY VTE Deep Vein Thrombosis/Pulmonary Embolism Present on Admission: No
[2021-11-05] MEDS: FLUTICASONE PROPIONATE SPRAY.NAS NS SCH (12:14)
[2021-11-05] MEDS: FLUTICASONE FUROATE VILANTEROL INH SCH (12:15)
[2021-11-05] MEDS: Tiotropium Bromide [Spiriva Respimat] 2.5 mcg/act Inhaler INH SCH (12:15)
[2021-11-05] MEDS: ATORVASTATIN 40 MG TABLET PO SCH (20:21)
[2021-11-05] MEDS: FAMOTIDINE 20 MG TABLET PO SCH (20:21)
[2021-11-05] MEDS: traZODone HCL 100 MG TABLET PO SCH (20:22)
[2021-11-06] MEDS: IPRATROPIUM/ALBUTEROL 3 ML AMPUL.NEB NEB SCH ×2 (04:04→08:40)
[2021-11-06] MEDS: 0.9 % SODIUM CHLORIDE 10 ML SYRINGE IV SCH (04:04)
[2021-11-06] MEDS: LEVOTHYROXINE 75 MCG TABLET PO SCH (06:52)
[2021-11-06] MEDS: TORSEMIDE 10 MG TABLET PO SCH (06:52)
[2021-11-06 07:15] LABS: Basophils # (Auto) 0.13 K/mcL (0.00-0.30); Basophils % (Auto) 1.1 % (0.0-2.0); Eosinophils # (Auto) 0.56 K/mcL (0.00-0.70); Eosinophils % (Auto) 4.9 % (0.0-7.0); Hematocrit 40.4 % (40.1-51.0); Lymphocytes # (Auto) 0.92 K/mcL (1.50-4.80); Mean Corpuscular HGB Conc 29.7 g/dL (31.0-36.0); Mean Platelet Volume 10.1 fL (7.4-10.4); Monocytes # (Auto) 1.15 K/mcL (0.10-0.90); Platelet Count 305 K/mcL (140-440); RBC 4.54 M/mcL (4.63-6.08); Red Cell Distribution Width 18.2 % (11.5-14.5); WBC 11.5 K/mcL (4.5-11.0)
[2021-11-06 07:44] LABS: INR 1.1 (0.9-1.1); Prothrombin Time 14.8 sec (11.9-14.5)
[2021-11-06 08:05] LABS: Phosphorous 5.1 mg/dL (2.5-4.5)
[2021-11-06] MEDS: CYANOCOBALAMIN (VITAMIN B-12) 500 MCG TABLET PO SCH (08:57)
[2021-11-06] MEDS: VITAMIN D3 25 MCG TABLET PO SCH (08:58)
[2021-11-06] MEDS: FOLIC ACID 1 MG TABLET PO SCH (08:59)
[2021-11-06] MEDS: BISOPROLOL 5 MG TABLET PO SCH (08:59)
[2021-11-06] MEDS: ACETAMINOPHEN 500 MG TABLET PO SCH (08:59)
[2021-11-06] MEDS: LISINOPRIL 10 MG TABLET PO SCH (09:00)
[2021-11-06] MEDS: HEPARIN 5,000 UNIT/ML VIAL SQ SCH (09:00)
[2021-11-06] MEDS: DOCUSATE SODIUM 100 MG CAPSULE PO SCH (09:00)
[2021-11-06] MEDS: guaiFENesin 600 MG TAB.SR.12H PO SCH (09:00)
[2021-11-06] MEDS: cefTRIAXone 1 GM VIAL IV SCH (09:16)
[2021-11-06] MEDS: Tiotropium Bromide [Spiriva Respimat] 2.5 mcg/act Inhaler INH SCH (09:17)
[2021-11-06] MEDS: FLUTICASONE FUROATE VILANTEROL INH SCH (09:17)
[2021-11-06] MEDS: FLUTICASONE PROPIONATE SPRAY.NAS NS SCH (09:18)
[2021-11-06] MEDS: FERROUS SULFATE 325 MG TABLET PO SCH (09:18)
--- NOTE | 2021-11-06 10:40 | Discharge Summary ---
Discharge Provider Provider Patient information: Note initiated : 11/06/21 at 10:36 am Service Date, if different from initiated Date: [] Patient: Ced Mejía 71 y/o M admitted on 11/02/21 for shortness of breath. Chief Complaint: [] Date of admission: 11/02/21 14:25 Discharge date: 11/06/21 Primary care physician: Sirena Rosen Attending physician on admission: Remigio Carl Consults: 11/02/21 Consult to Physician [CONS] Stat Comment: Consulting Provider: Remigio Carl Reason For Exam: Physician to Consult 11/03/21 10:37 Consult to Physician [CONS] Routine Comment: Consulting Provider: Damion Sam Reason For Exam: Physician to Consult Attending physician on discharge: Remigio Carl Discharge Meds Discharge Medications Home Medications cyanocobalamin (vitamin B-12) 2,500 mcg sublingual lozenge 2,500 mcg SUBLINGUAL QHS 12/28/17 [History Confirmed 11/02/21 Last Taken 11/01/21 21:00] ferrous sulfate 325 mg (65 mg iron) tablet 325 mg PO QDAY tab 12/28/17 [History Confirmed 11/02/21 Last Taken 11/01/21 08:00] pyridoxine (vitamin B6) 250 mg tablet 250 mg PO DAILY 12/28/17 [History Confirmed 11/02/21 Last Taken 11/01/21 08:00] bisoprolol fumarate 10 mg tablet 10 mg PO QDAY 02/03/18 [History Confirmed 11/02/21 Last Taken 11/01/21 08:00] guaifenesin 600 mg tablet, extended release 12 hr (Mucinex) 600 mg PO Q12H 02/03/18 [History Confirmed 11/02/21 Last Taken 11/01/21 21:00] atorvastatin 40 mg tablet 40 mg PO HS 05/10/18 [History Confirmed 11/02/21 Last Taken 11/01/21 21:00] torsemide 20 mg tablet 20 mg PO 0700,1200 05/10/18 [History Confirmed 11/02/21 Last Taken 11/01/21 12:00] levothyroxine 75 mcg capsule 75 mcg PO QDAY 03/26/19 [History Confirmed 11/02/21 Last Taken 11/01/21 07:00] CPAP #1 ea 12/04/19 [History Confirmed 11/02/21 Last Taken Unknown] fluticasone furoate 100 mcg-vilanterol 25 mcg/dose inhalation powder (Breo Ellipta) 1 inh INHALATION Q24H #60 each 01/24/20 [Rx Confirmed 11/02/21 Last Taken 11/01/21 08:00] acetaminophen [Tylenol] 1,000 mg PO BID 01/29/20 [History Confirmed 11/02/21 Last Taken 11/01/21 00:00] cholecalciferol (vitamin D3) 25 mcg (1,000 unit) capsule 2,000 unit PO QDAY cap 01/29/20 [History Confirmed 11/02/21 Last Taken 11/01/21 08:00] fluticasone propionate 50 mcg/actuation nasal spray,suspension 2 spray INTRANASAL QDAY #54.6 g 05/14/20 [Rx Confirmed 11/02/21 Last Taken 11/01/21 08:00] folic acid 1 mg tablet 1 mg PO QDAY 09/29/20 [History Confirmed 11/02/21 Last Taken 11/01/21 08:00] ipratropium 0.5 mg-albuterol 3 mg (2.5 mg base)/3 mL nebulization soln 3 ml INHALATION Q6H PRN #270 ml 04/01/21 [Rx Confirmed 11/02/21 Last Taken Unknown] albuterol sulfate 90 mcg/actuation aerosol inhaler (Ventolin HFA) 2 puff INHALATION Q6H PRN #8.5 g 04/09/21 [Rx Confirmed 11/02/21 Last Taken 11/01/21 00:00] famotidine 40 mg tablet 20 mg PO QHS 11/02/21 [History Confirmed 11/02/21 Last Taken 11/01/21 21:00] tiotropium bromide 2.5 mcg/actuation mist for inhalation (Spiriva Respimat) 2 puff INHALATION DAILY 11/02/21 [History Confirmed 11/02/21 Last Taken 11/01/21 08:00] trazodone 100 mg tablet 100 mg PO QHS 11/02/21 [History Confirmed 11/02/21 Last Taken Unknown] levofloxacin 750 mg tablet 750 mg PO Q24H #5 tab 11/06/21 [Rx Last Taken Unknown] metronidazole 500 mg tablet 500 mg PO Q8H 5 Days #15 tab 11/06/21 [Rx Last Taken Unknown] COURSE Hospital Course Hospital course: Mr. 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 Patient started to have acute onset shortness of breath since yesterday night. He is also complaining of cough with hemoptysis. Is also complaining of respiratory wheezings. He denies any chest pain or chest tightness. He denies any anxiety. He denies any fever, chills, or diaphoresis. He is unaware of the history of heart failure although he stated that he had cardiac coronary stent placement years ago. He denies any unintentional weight gain. He is complaining of mild bilateral legs pitting edema. He denies any change in his appetite. Vital signs at ED presentation significant for oxygen desaturating to the upper 80s on home oxygen. Tachypnea with rate of breathing in the mid 20s. Rest of the vital signs within normal limits. Labs significant for leukocytosis with WBC 15.4. Serum troponin level 0.04 followed by 0.03. BNP 2040. [place] negative. [place] pending. Chest x-ray showing 7 cm mass versus masslike infiltrate in the right medial lung base. 11/03: On 13L/min oxygen. Was on CPAP overnight. Afebrile overnight. CT chest w/o from 11/05 showed 6cm stellate mass in the right infrahilar region including the right middle lobe bronchus with complete right middle lobe atelectasis suspicious for primary lung carcinoma. Also mildly enlarged lymph nodes. c/o mild SOB. c/o productive cough with yellow sputum. Denies wheezing. Denies chest pain. Denies fever, chills, or sweating. 11/04: Dr. Sam saw patient last night 11/03, decided to hold Aspirin and arrange for bronchoscopy with biopsy next week outpatient. Afebrile overnight. Currently on 6L/min oxygen. c/o mild SOB. Denies cough or wheezing. Denies chest pain. Denies fever, chills, or sweating. Denies anxiety. Still on antibiotics Rocephin and Zithromax. Cultures no growth to date. 11/05: Afebrile overnight. Currently on 4L/min oxygen. c/o mild SOB. c/o nonproductive cough. Denies wheezing. Denies chest pain. Denies fever, chills, or sweating. Denies anxiety. Still on antibiotics Rocephin and Zithromax. Cultures no growth to date. 11/06: Reached clinical stability today. Will discharged home with home health, Rx of oral antibiotics, hold aspirin, and follow up with Dr. Sam next week for bronchoscopy with biopsy for the new 6cm right lung mass. Discharge diagnosis: pneumonia Time Spent with Patient Time attestation: Total time spent providing and/or coordinating discharge services: Time spent: Greater than 30 minutes EXAM Constitutional Vitals: Temp Pulse Resp BP Pulse Ox 36.6 C 54 L 18 117/68 95 11/06/21 07:06 11/06/21 08:40 11/06/21 08:40 11/06/21 07:06 11/06/21 08:40 General appearance: cooperative and no acute distress Head Head exam: Present atraumatic and normocephalic Eye Eye exam: Present EOMI and PERRL ENT ENT exam: Present mucous membranes moist, normal exam and normal external ear exam Additional comments: Nasal cannula in place Neck Neck exam: Present normal inspection; Absent lymphadenopathy, tenderness or thyromegaly Respiratory Respiratory exam: Present decreased breath sounds and rhonchi; Absent accessory muscle use, respiratory distress or wheezes Cardiovascular Cardiovascular exam: Present normal rate and rhythm; Absent JVD GI/Abdominal GI/Abdominal exam: Present normal bowel sounds and soft; Absent organomegaly or tenderness Rectal Rectal exam: Present deferred Extremities Exam Extremities exam: Present full ROM, normal capillary refill and normal inspection; Absent tenderness Neurological Exam Neurological exam: Present alert, CN II-XII intact and oriented X3; Absent motor sensory deficit Psychiatric Psychiatric exam: Present normal affect and normal mood; Absent anxious or depressed Skin Skin exam: Present dry and intact Discharge Data Data Completed and Pending Labs on day of discharge: Labs from last 24 hours 11/06/21 11/06/21 11/06/21 05:36 05:36 05:36 WBC 11.5 H RBC 4.54 L Hgb 12.0 L Hct 40.4 MCV 89.0 MCH 26.4 MCHC 29.7 L RDW 18.2 H Plt Count 305 MPV 10.1 Neut % (Auto) 76.0 Lymph % (Auto) 8.0 L [place] % (Auto) 10.0 Eos % (Auto) 4.9 Baso % (Auto) 1.1 Lymph # (Auto) 0.92 L [place] # (Auto) 1.15 H Eos # (Auto) 0.56 Baso # (Auto) 0.13 Absolute Neutrophils 8.73 H PT 14.8 H INR 1.1 Phosphorus 5.1 H Magnesium 2.6 H Preliminary micro results at discharge 11/02/21 09:15 Blood Culture - Preliminary Blood 11/02/21 09:05 Blood Culture - Preliminary Blood Discharge Plan Patient/Caregiver Discharge Instructions Activity: increase activity as tolerated Diet: Regular Diet Prescriptions: New levofloxacin 750 mg tablet 750 mg PO Q24H Qty: 5 0RF metronidazole 500 mg tablet 500 mg PO Q8H 5 Days Qty: 15 0RF Continued Breo Ellipta 100-25 mcg/dose blister with device 1 inh INHALATION Q24H Qty: 60 6RF fluticasone propionate 50 mcg/actuation spray,suspension 2 spray INTRANASAL QDAY Qty: 54.6 12RF Rx Instructions: administer into each nostril ipratropium-albuterol 0.5 mg-3 mg(2.5 mg base)/3 mL solution for nebulization 3 ml inhalation Q6H PRN (Reason: shortness of breath or wheezing) Qty: 270 3RF Rx Instructions: Do not use within 2 hours of other inhalers albuterol sulfate [Ventolin HFA] 90 mcg/actuation HFA aerosol inhaler 2 puff INHALATION Q6H PRN (Reason: shortness of breath or wheezing) Qty: 8.5 3RF cyanocobalamin (vitamin B-12) 2,500 mcg lozenge 2,500 mcg SUBLINGUAL QHS 0RF ferrous sulfate 325 mg (65 mg iron) tablet 325 mg PO QDAY 0RF pyridoxine (vitamin B6) 250 mg tablet 250 mg PO DAILY 0RF Label Comments: PO acetaminophen 1,000 mg PO BID 0RF bisoprolol fumarate 10 mg tablet 10 mg PO QDAY 0RF guaifenesin [Mucinex] 600 mg tablet extended release 12hr 600 mg PO Q12H 0RF cholecalciferol (vitamin D3) 25 mcg (1,000 unit) capsule 2,000 unit PO QDAY 0RF atorvastatin 40 mg tablet 40 mg PO HS 0RF torsemide 20 mg tablet 20 mg PO 0700,1200 0RF levothyroxine 75 mcg capsule 75 mcg PO QDAY 0RF (DME) CPAP Qty: 1 0RF Rx Instructions: As directed folic acid 1 mg tablet 1 mg PO QDAY 0RF famotidine 40 mg tablet 20 mg PO QHS 0RF trazodone 100 mg tablet 100 mg PO QHS 0RF Spiriva Respimat 2.5 mcg/actuation mist 2 puff INHALATION DAILY 0RF Discontinued Adult Low Dose Aspirin 81 mg Tablet 81 mg PO QDAY 0RF Follow Up Plan Follow up with: Damion Sam MD [Physician] - 11/25/21 4:30 pm Sirena Rosen [Primary Care Provider] - Patient Disposition: Home Health Service Prognosis: Serious Rehab Potential: Good I certify that the patient requires SNF services: No Overall status at discharge: patient is progressing back to baseline Discharge Orders: Discharge Order (Routine); Ordered 11/06/21 Ordered By: Remigio MILLER VTE Deep Vein Thrombosis/Pulmonary Embolism Present on Admission: No
== END 2021-11-06 13:20 | disposition home health service (06) | DRG 193 ==
LOC: ED 07:50 → ICU 14:25 → MEDSUR 11-05 13:52
PROVIDERS: ADMIT Internal Medicine; ATTEND Internal Medicine

== ENCOUNTER 2022-02-25 13:41 | Inpatient (IN) ==
[2022-02-25] MEDS ORDERED: AZITHROMYCIN 250 MG TABLET PO ONE (13:49)
--- NOTE | 2022-02-25 14:24 | XRay Report ---
INDICATION: dyspnea TECHNIQUE: AP portable upright chest x-ray COMPARISON: Previous CT scans dated 11/02/2021, 12/03/2021. Previous chest x-rays dated 11/02/2021 and 11/10/2021 FINDINGS: Lungs:Significant centrilobular emphysema. Focal density at the right lung base. This patient has chronic right middle lobe infiltrate and volume loss. This appearance is unchanged since 11/10/2021 and may be slightly improved since 08/14/2020 No left lung consolidation or interval change Heart, vascular:No significant cardiomegaly. Pulmonary vascularity is normal. No pulmonary edema or pulmonary congestion Mediastinum, dre:No mediastinal widening. No hilar mass Pleura:No pleural fluid. No pleural-based mass or calcification Skeletal:Negative. IMPRESSION: 1. Chronic right middle lobe pulmonary parenchymal infiltrate and volume loss 2. Severe emphysema 3. No new pulmonary parenchymal infiltrate. Interpreted and Authenticated by: Jose F Estrada 02/25/22
[2022-02-25 14:49] LABS: Basophils # (Auto) 0.09 K/mcL (0.00-0.30); Basophils % (Auto) 0.7 % (0.0-2.0); Eosinophils # (Auto) 0.04 K/mcL (0.00-0.70); Eosinophils % (Auto) 0.3 % (0.0-7.0); Hematocrit 44.5 % (40.1-51.0); Hemoglobin 13.9 g/dL (13.7-17.5); Lymphocytes # (Auto) 0.31 K/mcL (1.50-4.80); Lymphocytes % (Auto) 2.4 % (15.5-49.0); Mean Cell Volume 93.9 fL (80.0-100.0); Mean Corpuscular HGB Conc 31.2 g/dL (31.0-36.0); Mean Platelet Volume 10.4 fL (7.4-10.4); Monocytes # (Auto) 0.23 K/mcL (0.10-0.90); Monocytes % (Auto) 1.8 % (1.0-12.0); Neutrophils % (Auto) 94.8 % (38.0-78.0); Platelet Count 293 K/mcL (140-440); RBC 4.74 M/mcL (4.63-6.08); Red Cell Distribution Width 16.2 % (11.5-14.5); WBC 12.8 K/mcL (4.5-11.0)
[2022-02-25 15:11] LABS: ALT/SGPT 28 U/L (<40); AST/SGOT 21 U/L (<40); Albumin 4.3 gm/dL (3.2-5.2); Albumin/Globulin Ratio 1.3 (1.0-2.3); Alkaline Phosphatase 131 U/L (39-117); Bilirubin,Total 1.2 mg/dL (0.1-1.0); Blood Urea Nitrogen 33 mg/dL (8-23); Calcium 9.9 mg/dL (8.6-10.4); Carbon Dioxide 23 mmol/L (22-30); Chloride 103 mmol/L (96-108); Globulin 3.2 gm/dL (2.2-3.7); Glomerular Filtration Rate 42; Glucose 162 mg/dL (70-105)
--- NOTE | 2022-02-25 16:04 | Emergency Department Note ---
HPI General Chief complaint: Shortness of Breath/Dyspnea Stated complaint: SOB Time Seen by Provider: 02/25/22 13:49 Source: EMS Mode of arrival: EMS Limitations: no limitations History of Present Illness HPI Narrative: Narrative: 71-year-old male with history of COPD, chronic hypoxia on 4 to 4-1/2 L nasal cannula, CHF presents via EMS for evaluation of worsening shortness of breath. He called a couple of hours ago, initially assessed to have probable COPD exacerbation was given nebulizer treatment and 10 mg dexamethasone from which she had improvement. They did note some borderline hypoxia at the time. They treated and released, and patient reported rapid worsening shortness of breath after less than an hour, so called again and was taken into the emergency department. He denies any fever or chills. He denies significant cough change. He denies any other recent illness. He denies any positional component to his shortness of breath. He denies any increased edema Related Data Home Medications Medication Instructions Recorded Confirmed cyanocobalamin (vitamin B-12) 2,500 mcg SUBLINGUAL QHS 12/28/17 02/25/22 2,500 mcg sublingual lozenge ferrous sulfate 325 mg (65 mg 325 mg PO QDAY tab 12/28/17 02/25/22 iron) tablet pyridoxine (vitamin B6) 250 mg 250 mg PO DAILY 12/28/17 02/25/22 tablet bisoprolol fumarate 10 mg tablet 10 mg PO QDAY 02/03/18 02/25/22 guaifenesin 600 mg tablet, 600 mg PO Q12H 02/03/18 02/25/22 extended release 12 hr (Mucinex) atorvastatin 40 mg tablet 40 mg PO HS 05/10/18 02/25/22 torsemide 20 mg tablet 10 mg PO DAILY 05/10/18 02/25/22 levothyroxine 75 mcg capsule 75 mcg PO QDAY 03/26/19 02/25/22 CPAP #1 ea 10/24/19 02/25/22 acetaminophen [Tylenol] 1,000 mg PO BID 01/29/20 02/25/22 cholecalciferol (vitamin D3) 25 2,000 unit PO QDAY cap 01/29/20 02/25/22 mcg (1,000 unit) capsule folic acid 1 mg tablet 1 mg PO QDAY 09/29/20 02/25/22 tiotropium bromide 2.5 2 puff INHALATION DAILY 11/02/21 02/25/22 mcg/actuation mist for inhalation (Spiriva Respimat) trazodone 100 mg tablet 100 mg PO QHS 11/02/21 02/25/22 aspirin 81 mg tablet 81 mg PO QDAY 11/10/21 02/25/22 Breo Ellipta 1 cap INHALATION DAILY 02/25/22 02/25/22 famotidine 20 mg tablet 20 mg PO BID 02/25/22 02/25/22 lisinopril 10 mg tablet 10 mg PO QDAY 02/25/22 02/25/22 Previous Rx's Medication Instructions Recorded fluticasone propionate 50 2 spray INTRANASAL QDAY #48 g 02/02/22 mcg/actuation nasal spray,suspension Allergies Allergy/AdvReac Type Severity Reaction Status Date / Time No Known Drug Allergies Allergy Verified 02/25/22 13:42 latex tape AdvReac Intermediate Rash Uncoded 11/25/21 16:40 Review of Systems ROS ROS Narrative: Narrative: All systems ED: reviewed and negative except as stated. [facility] Narrative Patient History Narrative: Narrative: Medical/Surgical/Family History All Active Problems (Updated 02/25/22 @ 16:17 by Ry London DO) Acute on chronic respiratory failure with hypoxemia (Acute) Acute exacerbation of chronic obstructive pulmonary disease (Acute) Acute and chronic respiratory failure with hypoxia (Acute) Lung mass (Acute) COPD exacerbation (Acute) Acute respiratory failure with hypoxia (Acute) Acute dyspnea (Acute) Pneumonia (Acute) Muscular deconditioning (Chronic) History of lung cancer (Acute) Abnormal CT scan, chest (Acute) Hypoxemia (Chronic) Solid nodule of lung greater than 8 mm in diameter (Acute) JOSSELIN on CPAP (Chronic) Non-small cell lung cancer (Chronic) SOB (shortness of breath) (Chronic) Shingles (Chronic) Malignant neoplasm of lung (Chronic) Malignant neoplasm of brain (Chronic) Elevated serum creatinine (Chronic) GERD (gastroesophageal reflux disease) (Chronic) Essential hypertension (Chronic) Morbid obesity (Chronic) Hyperlipidemia (Chronic) Hypothyroidism (Chronic) Malignant tumor of pharynx (Chronic) COPD (chronic obstructive pulmonary disease) (Chronic) Medical History Abnormal CT scan, chest COPD (chronic obstructive pulmonary disease) Elevated serum creatinine Essential hypertension GERD (gastroesophageal reflux disease) History of lung cancer Hyperlipidemia Hypothyroidism Hypoxemia Malignant neoplasm of brain Malignant neoplasm of lung Malignant tumor of pharynx Morbid obesity Muscular deconditioning Non-small cell lung cancer JOSSELIN on CPAP JOSSELIN on CPAP Pneumonia Shingles SOB (shortness of breath) Surgical History History of lobectomy of lung left lower History of throat surgery laryngeal cord Family History Father Heart disease Mother Heart disease Social History Smoking Status: Never smoker Alcohol Intake Frequency: does not drink Substance Use: does not use Exam Narrative Narrative: Narrative: General Limitations: no limitations General appearance: Present alert and in no apparent distress Head Head: Present atraumatic and normocephalic Eye Eye: Present normal appearance, PERRL and EOMI ENT ENT: Present normal exam, normal oropharynx and mucous membranes moist Neck Neck: Present normal inspection and full ROM Chest Chest: Present normal inspection and symmetric chest wall rise Respiratory Respiratory: Present prolonged expiratory phase, decreased breath sounds and other (Arrives on nonrebreather mask at 8 L/min); Absent respiratory distress or wheezes Cardiovascular Cardiovascular: Present regular rate and normal rhythm Adbominal Abdominal: Present soft; Absent distention or tenderness Extremities Extremities: Present normal inspection and full ROM; Absent pedal edema Back Back: Present normal inspection and full ROM Neurological Neurological: Present alert and oriented X3 Psychiatric Psychiatric: Present normal affect and normal mood Skin Skin: Present warm (WNL), dry and normal color Course Vital Signs Vital signs: Vital Signs Temperature 97.5 F 02/25/22 13:42 Pulse Rate 64 02/25/22 13:42 Respiratory Rate 20 02/25/22 13:42 Blood Pressure 111/64 02/25/22 13:42 Pulse Oximetry (%) 97 02/25/22 13:42 Temperature 97.5 F 02/25/22 13:42 Pulse Rate 62 02/25/22 15:47 Respiratory Rate 20 02/25/22 13:42 Blood Pressure 132/84 02/25/22 15:31 Pulse Oximetry (%) 95 02/25/22 15:47 MDM MDM Narrative Medical decision making narrative: Narrative: Patient with acute on chronic hypoxic respiratory failure. He is requiring increased oxygen from his baseline which is 4.5 L. We were able to titrate treat him down to 6 L via nasal cannula to maintain oxygenation. He is already received steroids. With increased oxygen need and increased frequency of nebulizer treatment need, he will benefit from admission for further care. There is no evidence of pneumonia. I have low suspicion of heart failure as the etiology of the disease. He was admitted for further care Medical Records Medical records reviewed: Yes I reviewed the patient's medical records. Lab Data Lab results reviewed: Yes I reviewed the patient's lab results. Result diagrams: 02/25/22 14:11 02/25/22 14:11 Labs: Lab Results 02/25/22 02/25/22 02/25/22 Range/Units 14:11 14:11 14:11 WBC 12.8 H (4.5-11.0) K/mcL RBC 4.74 (4.63-6.08) M/mcL Hgb 13.9 (13.7-17.5) g/dL Hct 44.5 (40.1-51.0) % MCV 93.9 (80.0-100.0) fL MCH 29.3 (26.0-34.0) pg MCHC 31.2 (31.0-36.0) g/dL RDW 16.2 H (11.5-14.5) % Plt Count 293 (140-440) K/mcL MPV 10.4 (7.4-10.4) fL Neut % (Auto) 94.8 H (38.0-78.0) % Lymph % (Auto) 2.4 L (15.5-49.0) % [place] % (Auto) 1.8 (1.0-12.0) % Eos % (Auto) 0.3 (0.0-7.0) % Baso % (Auto) 0.7 (0.0-2.0) % Lymph # (Auto) 0.31 L (1.50-4.80) K/mcL [place] # (Auto) 0.23 (0.10-0.90) K/mcL Eos # (Auto) 0.04 (0.00-0.70) K/mcL Baso # (Auto) 0.09 (0.00-0.30) K/mcL Absolute Neutrophils 12.13 H (1.80-8.00) K/mcL Sodium 140 (133-145) mmol/L Potassium 4.0 (3.3-5.1) mmol/L Chloride 103 (96-108) mmol/L Carbon Dioxide 23 (22-30) mmol/L Anion Gap 14.0 (8.0-16.0) BUN 33 H (8-23) mg/dL Creatinine 1.6 H (0.7-1.2) mg/dL GFR Calculation 42 Glucose 162 H (70-105) mg/dL Calcium 9.9 (8.6-10.4) mg/dL Total Bilirubin 1.2 H (0.1-1.0) mg/dL AST 21 (<40) U/L ALT 28 (<40) U/L Alkaline Phosphatase 131 H (39-117) U/L Troponin T 0.04 H* (<0.03) ng/mL Total Protein 7.5 (5.9-8.4) gm/dL Albumin 4.3 (3.2-5.2) gm/dL Globulin 3.2 (2.2-3.7) gm/dL Albumin/Globulin Ratio 1.3 (1.0-2.3) Radiology Data Radiology results reviewed: Yes I reviewed the patient's radiology results. EKG Data EKG #1: EKG attestation: Yes I reviewed and interpreted this EKG. EKG results narrative: Sinus rhythm at a rate of 64. Normal axis. QTC 446. First-degree AV block. Poor R wave progression. No acute appearing ST-T changes. Borderline EKG. CC TIME Critical Care Time Critical Care Time: Yes Attestation: [id number] minutes of critical care time was used in order to assess and manage the high probability of imminent or life threatening deterioration to acute on chronic hypoxemic respiratory failure, COPD exacerbation] which required my highest level of preparedness and interventions with frequent patient assessments. This time is excluding time spent on separately billable procedures. Discharge Plan Patient/Caregiver Discharge Instructions Pt seen by [employer] TENDER/PA only: No Clinical Impression: Acute on chronic respiratory failure with hypoxemia, Acute exacerbation of chronic obstructive pulmonary disease Patient Disposition: Xfer As Inpt ([facility]) Follow up with: Sirena Rosen [Primary Care Provider] - Prescriptions: No Action fluticasone propionate 50 mcg/actuation spray,suspension 2 spray intranasal QDAY Qty: 48 12RF cyanocobalamin (vitamin B-12) 2,500 mcg lozenge 2,500 mcg SUBLINGUAL QHS 0RF ferrous sulfate 325 mg (65 mg iron) tablet 325 mg PO QDAY 0RF pyridoxine (vitamin B6) 250 mg tablet 250 mg PO DAILY 0RF Label Comments: PO acetaminophen 1,000 mg PO BID 0RF bisoprolol fumarate 10 mg tablet 10 mg PO QDAY 0RF guaifenesin [Mucinex] 600 mg tablet extended release 12hr 600 mg PO Q12H 0RF cholecalciferol (vitamin D3) 25 mcg (1,000 unit) capsule 2,000 unit PO QDAY 0RF atorvastatin 40 mg tablet 40 mg PO HS 0RF torsemide 20 mg tablet 10 mg PO DAILY 0RF levothyroxine 75 mcg capsule 75 mcg PO QDAY 0RF (DME) CPAP Qty: 1 0RF Rx Instructions: As directed folic acid 1 mg tablet 1 mg PO QDAY 0RF trazodone 100 mg tablet 100 mg PO QHS 0RF Spiriva Respimat 2.5 mcg/actuation mist 2 puff INHALATION DAILY 0RF aspirin 81 mg Tablet 81 mg PO QDAY 0RF famotidine 20 mg Tablet 20 mg PO BID 0RF lisinopril 10 mg Tablet 10 mg PO QDAY 0RF Breo Ellipta 100 mcg/25 mcg capsule 1 cap inhalation DAILY 0RF
--- NOTE | 2022-02-25 16:37 | Internal Med History&Physical ---
HPI History of Present Illness Patient information: Note initiated : 02/25/22 at 4:24 pm Service Date, if different from initiated Date: [] Patient: Ced Mejía a 71 y/o M admitted on for Shortness of breath. Chief Complaint: [] History of present illness: Mr. Mejía is a 71 year old male with a history of COPD with chronic hypoxia, congestive heart failure, chronic kidney disease stage III, obstructive sleep apnea on ASV machine, hypertension, hyperlipidemia, obesity, hypothyroidism, history of lung cancer status post left lower lobe lobectomy who presented to the ED from home for shortness of breath that started this morning after he went to the bathroom. The patient says that he was unable to get his oxygen saturations above 80 after going to the bathroom. EMS was notified, came to the patient's home and gave the patient a bronchodilator treatment as well as a dose of Decadron. The patient did not feel back to his baseline and called EMS again, the patient was then brought to the emergency department where he was found to have an oxygen requirement of 6 L/min. The patient says that he has been using 4.5 L/min at home for some time, he says that he is supposed to use about 3.5 L/min nasal cannula oxygen. In the emergency department, the patient received bronchodilators after which he felt better but not back to his baseline. In the ED, the patient had an elevated white blood cell count of 12.8, renal function was near the patient's baseline, troponin was mildly elevated at a 0.04, EKG did not show any acute ischemic changes. The patient did not have any chest pains in the preceding day. Chest x-ray showed a chronic right middle lobe pulmonary parenchymal infiltrate and volume loss, severe emphysema, no new pulmonary parenchymal infiltrates. Review of systems Constitutional: no fever, fatigue, or weight loss Eyes: no vision changes or pain Cardiovascular: no chest pain, no palpitations Respiratory: Positive for dyspnea, chronic cough Gastrointestinal: no abdominal pain, no nausea, vomiting, or diarrhea Genitourinary: no dysuria or difficulty voiding Musculoskeletal: no arthralgia or myalgia Integumentary: no skin lesion or wound Neurological: no focal weakness or numbness Psychiatric: no anxiety or depression Physical exam Head: Atraumatic, normal inspection. Eyes: normal appearance, no scleral icterus. Neck: full ROM Respiratory: Bilateral crackles, no respiratory distress. Cardiovascular: normal rate and rhythm, S1, S2. GI/Abdominal: soft, nontender, no guarding. Extremities: full range of motion, nontender. Neurological: CN II-XII intact, intact motor, intact sensation. Psychiatric: normal mood. Skin: warm, normal color PFSH PFSH All Active Problems (Updated 02/25/22 @ 16:17 by Ry London DO) Acute on chronic respiratory failure with hypoxemia (Acute) Acute exacerbation of chronic obstructive pulmonary disease (Acute) Acute and chronic respiratory failure with hypoxia (Acute) Lung mass (Acute) COPD exacerbation (Acute) Acute respiratory failure with hypoxia (Acute) Acute dyspnea (Acute) Pneumonia (Acute) Muscular deconditioning (Chronic) History of lung cancer (Acute) Abnormal CT scan, chest (Acute) Hypoxemia (Chronic) Solid nodule of lung greater than 8 mm in diameter (Acute) JOSSELIN on CPAP (Chronic) Non-small cell lung cancer (Chronic) SOB (shortness of breath) (Chronic) Shingles (Chronic) Malignant neoplasm of lung (Chronic) Malignant neoplasm of brain (Chronic) Elevated serum creatinine (Chronic) GERD (gastroesophageal reflux disease) (Chronic) Essential hypertension (Chronic) Morbid obesity (Chronic) Hyperlipidemia (Chronic) Hypothyroidism (Chronic) Malignant tumor of pharynx (Chronic) COPD (chronic obstructive pulmonary disease) (Chronic) Medical History Abnormal CT scan, chest COPD (chronic obstructive pulmonary disease) Elevated serum creatinine Essential hypertension GERD (gastroesophageal reflux disease) History of lung cancer Hyperlipidemia Hypothyroidism Hypoxemia Malignant neoplasm of brain Malignant neoplasm of lung Malignant tumor of pharynx Morbid obesity Muscular deconditioning Non-small cell lung cancer JOSSELIN on CPAP JOSSELIN on CPAP Pneumonia Shingles SOB (shortness of breath) Surgical History History of lobectomy of lung left lower History of throat surgery laryngeal cord Family History Father Heart disease Mother Heart disease Social History education level: high school occupational status: unemployed alcohol intake frequency: does not drink substance use type: does not use seatbelt use: always working smoke detector in home: Yes firearms in home: Yes MEDS/ALLERGIES Home Medications and Allergies Home Medications Medication Instructions Recorded Confirmed Type cyanocobalamin (vitamin B-12) 2,500 mcg SUBLINGUAL QHS 12/28/17 02/25/22 History 2,500 mcg sublingual lozenge ferrous sulfate 325 mg (65 mg 325 mg PO QDAY tab 12/28/17 02/25/22 History iron) tablet pyridoxine (vitamin B6) 250 mg 250 mg PO DAILY 12/28/17 02/25/22 History tablet bisoprolol fumarate 10 mg tablet 10 mg PO QDAY 02/03/18 02/25/22 History guaifenesin 600 mg tablet, 600 mg PO Q12H 02/03/18 02/25/22 History extended release 12 hr (Mucinex) atorvastatin 40 mg tablet 40 mg PO HS 05/10/18 02/25/22 History torsemide 20 mg tablet 10 mg PO DAILY 05/10/18 02/25/22 History levothyroxine 75 mcg capsule 75 mcg PO QDAY 03/26/19 02/25/22 History CPAP #1 ea 10/24/19 02/25/22 History acetaminophen [Tylenol] 1,000 mg PO BID 01/29/20 02/25/22 History cholecalciferol (vitamin D3) 25 2,000 unit PO QDAY cap 01/29/20 02/25/22 History mcg (1,000 unit) capsule folic acid 1 mg tablet 1 mg PO QDAY 09/29/20 02/25/22 History tiotropium bromide 2.5 2 puff INHALATION DAILY 11/02/21 02/25/22 History mcg/actuation mist for inhalation (Spiriva Respimat) trazodone 100 mg tablet 100 mg PO QHS 11/02/21 02/25/22 History aspirin 81 mg tablet 81 mg PO QDAY 11/10/21 02/25/22 History fluticasone propionate 50 2 spray INTRANASAL QDAY #48 g 02/02/22 02/25/22 Rx mcg/actuation nasal spray,suspension Breo Ellipta 1 cap INHALATION DAILY 02/25/22 02/25/22 History famotidine 20 mg tablet 20 mg PO BID 02/25/22 02/25/22 History lisinopril 10 mg tablet 10 mg PO QDAY 02/25/22 02/25/22 History Allergies Allergy/AdvReac Type Severity Reaction Status Date / Time No Known Drug Allergies Allergy Verified 02/25/22 13:42 latex tape AdvReac Intermediate Rash Uncoded 11/25/21 16:40 EXAM Constitutional Vitals: Temp Pulse Resp BP Pulse Ox 97.5 F 62 20 132/84 95 02/25/22 13:42 02/25/22 15:47 02/25/22 13:42 02/25/22 15:31 02/25/22 15:47 DATA Data Completed and Pending Labs: Labs from last 24 hours 02/25/22 02/25/22 02/25/22 14:11 14:11 14:11 WBC 12.8 H RBC 4.74 Hgb 13.9 Hct 44.5 MCV 93.9 MCH 29.3 MCHC 31.2 RDW 16.2 H Plt Count 293 MPV 10.4 Neut % (Auto) 94.8 H Lymph % (Auto) 2.4 L Carroll % (Auto) 1.8 Eos % (Auto) 0.3 Baso % (Auto) 0.7 Lymph # (Auto) 0.31 L [place] # (Auto) 0.23 Eos # (Auto) 0.04 Baso # (Auto) 0.09 Absolute Neutrophils 12.13 H Sodium 140 Potassium 4.0 Chloride 103 Carbon Dioxide 23 Anion Gap 14.0 BUN 33 H Creatinine 1.6 H GFR Calculation 42 Glucose 162 H Calcium 9.9 Total Bilirubin 1.2 H AST 21 ALT 28 Alkaline Phosphatase 131 H Troponin T 0.04 H* Total Protein 7.5 Albumin 4.3 Globulin 3.2 Albumin/Globulin Ratio 1.3 A/P Narrative A/P Narrative: Assessment: 71 year old male with a history of COPD with chronic hypoxia, congestive heart failure, chronic kidney disease stage III, obstructive sleep apnea on ASV machine, hypertension, hyperlipidemia, obesity, hypothyroidism, history of lung cancer status post left lower lobe lobectomy who presented to the ED from home for shortness of breath that started this morning after he went to the bathroom. The patient was found to have an oxygen requirement of 6 L/min, at his baseline oxygen requirement has recently been 4.5 L/min. The cause of the patient's increased by her current requirement is unclear, possibly related to a COPD exacerbation. Additionally, the patient appears to be somewhat volume overloaded therefore mild CHF may be playing a role. #Acute on chronic hypoxic respiratory failure #Possible COPD exacerbation #Chronic diastolic heart failure #Chronic kidney disease stage III #Obstructive sleep apnea on ASV #Hypertension #Hyperlipidemia #Hypothyroidism #History of lung cancer status post left lower lobectomy #Obesity BMI 44 Plan -Solu-Medrol IV twice daily. -Duo nebs and as needed albuterol. -Lasix 60 mg IV twice daily, hold home torsemide. -Monitor renal function and diuresis. -Oxygen supplementation, wean back to baseline as tolerated. -Check pro-BNP. -Check procalcitonin. -Consider CT chest. . -Consider transthoracic echocardiogram, last completed 11/02/2021. -Home medication reconciliation, resume important meds. -Hospital CPAP at bedtime versus home ASV machine if family is able to bring to the hospital. -teletypesetter monitor while diuresing. -Low-sodium diet. -PT consult. -DVT prophylaxis: Heparin SQ -CODE STATUS: Full -Disposition: Probably home when stable. May need an oxygen concentrator in the near future. Time Spent With Patient Time: Total time spent is greater than 50% in coordination of care (as documented) at patient's floor/unit and/or counseling patient:
[2022-02-25] MEDS ORDERED: SENNOSIDES 1 TABLET PO PRN (19:49)
[2022-02-25] MEDS ORDERED: ALBUTEROL SULFATE 2.5 MG/3 ML NEBULIZER NEB PRN (19:49)
[2022-02-25] MEDS ORDERED: ONDANSETRON 4 MG/2 ML VIAL IV PRN (19:49)
[2022-02-25] MEDS ORDERED: ACETAMINOPHEN 325 MG TABLET PO PRN (19:49)
[2022-02-25] MEDS ORDERED: LACTULOSE 20 GM/30 ML ORAL.SOL PO PRN (19:49)
[2022-02-25] MEDS ORDERED: traZODone HCL 100 MG TABLET PO PRN (19:49)
[2022-02-25] MEDS: methylPREDNISolone SOD SUCC 40 MG/ML VIAL IV SCH (21:12)
[2022-02-25] MEDS: HEPARIN 5,000 UNIT/ML VIAL SQ SCH (21:12)
[2022-02-25] MEDS: DOCUSATE SODIUM 100 MG CAPSULE PO SCH (21:12)
[2022-02-25] MEDS: FUROSEMIDE 100 MG/10 ML VIAL IV SCH ×2 (21:12→21:13)
[2022-02-25] MEDS: 0.9 % SODIUM CHLORIDE 10 ML SYRINGE IV SCH (21:13)
[2022-02-25 21:48] LABS: ALT/SGPT 30 U/L (<40); AST/SGOT 23 U/L (<40); Albumin 4.4 gm/dL (3.2-5.2); Albumin/Globulin Ratio 1.4 (1.0-2.3); Alkaline Phosphatase 137 U/L (39-117); Bilirubin,Direct 0.3 mg/dL (<0.3); Bilirubin,Total 1.2 mg/dL (0.1-1.0); Blood Urea Nitrogen 33 mg/dL (8-23); Calcium 9.9 mg/dL (8.6-10.4); Carbon Dioxide 21 mmol/L (22-30); Chloride 102 mmol/L (96-108); Globulin 3.2 gm/dL (2.2-3.7); Glomerular Filtration Rate 42; Glucose 155 mg/dL (70-105); Lactate Dehydrogenase 212 U/L (135-225); Phosphorous 3.1 mg/dL (2.5-4.5); Triglycerides 41 mg/dL (<150)
[2022-02-26] MEDS: guaiFENesin 600 MG TAB.SR.12H PO SCH ×3 (00:43→20:23)
[2022-02-26] MEDS: IPRATROPIUM/ALBUTEROL 3 ML AMPUL.NEB NEB PRN ×2 (00:59→07:36)
[2022-02-26] MEDS: 0.9 % SODIUM CHLORIDE 10 ML SYRINGE IV SCH ×3 (06:01→20:25)
[2022-02-26 06:53] LABS: Basophils # (Auto) 0.01 K/mcL (0.00-0.30); Basophils % (Auto) 0.1 % (0.0-2.0); Eosinophils # (Auto) 0 K/mcL (0.00-0.70); Eosinophils % (Auto) 0 % (0.0-7.0); Hematocrit 44.5 % (40.1-51.0); Hemoglobin 13.7 g/dL (13.7-17.5); Lymphocytes # (Auto) 0.49 K/mcL (1.50-4.80); Lymphocytes % (Auto) 4.9 % (15.5-49.0); Mean Cell Volume 95.5 fL (80.0-100.0); Mean Corpuscular HGB Conc 30.8 g/dL (31.0-36.0); Mean Platelet Volume 10.3 fL (7.4-10.4); Monocytes # (Auto) 0.14 K/mcL (0.10-0.90); Monocytes % (Auto) 1.4 % (1.0-12.0); Neutrophils % (Auto) 93.6 % (38.0-78.0); Platelet Count 283 K/mcL (140-440); RBC 4.66 M/mcL (4.63-6.08); Red Cell Distribution Width 15.9 % (11.5-14.5); WBC 9.9 K/mcL (4.5-11.0)
[2022-02-26 07:25] LABS: ALT/SGPT 29 U/L (<40); AST/SGOT 22 U/L (<40); Albumin 3.9 gm/dL (3.2-5.2); Albumin/Globulin Ratio 1.3 (1.0-2.3); Alkaline Phosphatase 120 U/L (39-117); Bilirubin,Direct 0.3 mg/dL (<0.3); Bilirubin,Total 1.1 mg/dL (0.1-1.0); Blood Urea Nitrogen 37 mg/dL (8-23); Calcium 9.4 mg/dL (8.6-10.4); Carbon Dioxide 21 mmol/L (22-30); Chloride 102 mmol/L (96-108); Globulin 2.9 gm/dL (2.2-3.7); Glomerular Filtration Rate 42; Glucose 164 mg/dL (70-105); Lactate Dehydrogenase 217 U/L (135-225); Phosphorous 2.9 mg/dL (2.5-4.5); Triglycerides 42 mg/dL (<150); Uric Acid 11.8 mg/dL (2.5-8.0)
[2022-02-26] MEDS: LEVOTHYROXINE 75 MCG TABLET PO SCH (08:11)
[2022-02-26] MEDS: BISOPROLOL 5 MG TABLET PO SCH (08:13)
[2022-02-26] MEDS: ASPIRIN 81 MG TAB.CHEW PO SCH (08:13)
[2022-02-26] MEDS: PYRIDOXINE 100 MG TABLET PO SCH (08:13)
[2022-02-26] MEDS: ACETAMINOPHEN 500 MG TABLET PO SCH ×2 (08:16→20:26)
[2022-02-26] MEDS: LISINOPRIL 10 MG TABLET PO SCH (08:17)
[2022-02-26] MEDS: DOCUSATE SODIUM 100 MG CAPSULE PO SCH ×2 (08:17→20:23)
[2022-02-26] MEDS: FOLIC ACID 1 MG TABLET PO SCH (08:17)
[2022-02-26] MEDS: FLUTICASONE PROPIONATE SPRAY.NAS NS SCH (08:17)
[2022-02-26] MEDS: FAMOTIDINE 20 MG TABLET PO SCH ×2 (08:17→20:24)
[2022-02-26] MEDS: methylPREDNISolone SOD SUCC 40 MG/ML VIAL IV SCH (08:25)
[2022-02-26] MEDS: HEPARIN 5,000 UNIT/ML VIAL SQ SCH ×2 (08:25→20:23)
[2022-02-26] MEDS: FUROSEMIDE 100 MG/10 ML VIAL IV SCH ×2 (08:25→20:23)
--- NOTE | 2022-02-26 10:05 | EKG ---
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 Measurements Intervals [place] Rate: 64 P: 3 MO: 212 QRS: -33 QRSD: 117 T: 15 QT: 432 QTc: 446 Interpretive Statements Sinus rhythm Nonspecific intraventricular conduction delay Low voltage, precordial leads Poor R wave progression. Electronically Signed On 02-26-2022 10:04:47 PDT by Jose F Abdi M.D. /store/M0/[id number]
--- NOTE | 2022-02-26 16:06 | Internal Med Progress Note ---
SUBJECTIVE Subjective Patient information: Note initiated : 02/26/22 at 4:06 pm Service Date, if different from initiated Date: [] Patient: Ced Mejía a 71 y/o M admitted on 02/25/22 for Shortness of breath. Chief Complaint: [] Interval history: Mr. Mejía is a 71 year old male with a history of COPD with chronic hypoxia, congestive heart failure, chronic kidney disease stage III, obstructive sleep apnea on ASV machine, hypertension, hyperlipidemia, obesity, hypothyroidism, history of lung cancer status post left lower lobe lobectomy who presented to the ED from home for shortness of breath that started this morning after he went to the bathroom. The patient says that he was unable to get his oxygen saturations above 80 after going to the bathroom. EMS was notified, came to the patient's home and gave the patient a bronchodilator treatment as well as a dose of Decadron. The patient did not feel back to his baseline and called EMS again, the patient was then brought to the emergency department where he was found to have an oxygen requirement of 6 L/min. The patient says that he has been using 4.5 L/min at home for some time, he says that he is supposed to use about 3.5 L/min nasal cannula oxygen. In the emergency department, the patient received bronchodilators after which he felt better but not back to his baseline. In the ED, the patient had an elevated white blood cell count of 12.8, renal function was near the patient's baseline, troponin was mildly elevated at a 0.04, EKG did not show any acute ischemic changes. The patient did not have any chest pains in the preceding day. Chest x-ray showed a chronic right middle lobe pulmonary parenchymal infiltrate and volume loss, severe emphysema, no new pulmonary parenchymal infiltrates. 02/26 Improving oxygen requirement, presentations seems more likely to be due to heart failure than COPD. Continue lasix IV for diuresis. Resumed home inhalers, transitioned from Solumedrol IV to prednisone for 5 days. Speech evaluation for reported issues with swallowing food. Transitioned to med/surg status. Physical exam Head: Atraumatic, normal inspection. Eyes: normal appearance, no scleral icterus. Neck: full ROM Respiratory: Bilateral crackles, no respiratory distress. Cardiovascular: normal rate and rhythm, S1, S2. GI/Abdominal: soft, nontender, no guarding. Extremities: full range of motion, nontender. Neurological: CN II-XII intact, intact motor, intact sensation. Psychiatric: normal mood. Skin: warm, normal color Constitutional Vitals: Vital Signs Temp Pulse Resp BP Pulse Ox 97.2 F 59 L 19 130/84 95 02/26/22 16:04 02/26/22 16:04 02/26/22 16:04 02/26/22 16:04 02/26/22 16:04 Period Temp Pulse Resp BP Sys/Vazquez Pulse Ox Last 24 Hr 97.2 F-97.8 F 55-82 14-31 94-182/32-123 91-100 Intake and Output 02/26/22 02/26/22 02/26/22 05:59 13:59 21:59 Intake Total 800 Output Total 1625 750 Balance -1625 50 Intake & Output: Intake & Output 02/26/22 02/26/22 02/26/22 05:59 13:59 21:59 Intake Total 800 Output Total 1625 750 Balance -1625 50 Intake: Oral 800 Output: Void Amount 1625 750 Other: Meal Lunch Percent of Meal Consumed 100% Feeding Ability Independent Urine Appearance Clear Clear Urine Color Pale Dark Yellow Urine Odor Normal OBJ DATA Labs CBC & Chem 7: 02/26/22 05:30 02/26/22 05:30 Labs: Abnormal Lab Results 02/26/22 02/26/22 02/25/22 05:30 05:30 23:20 WBC MCHC 30.8 L RDW 15.9 H Neut % (Auto) 93.6 H Lymph % (Auto) 4.9 L Lymph # (Auto) 0.49 L Absolute Neutrophils 9.28 H Carbon Dioxide 21 L BUN 37 H Creatinine 1.6 H Glucose 164 H Uric Acid 11.8 H Total Bilirubin 1.1 H Direct Bilirubin 0.3 H GGT 105 H Alkaline Phosphatase 120 H Troponin T 0.03 H NT-Pro-B Natriuret Pep Procalcitonin 02/25/22 02/25/22 02/25/22 20:13 20:13 20:12 WBC MCHC RDW Neut % (Auto) Lymph % (Auto) Lymph # (Auto) Absolute Neutrophils Carbon Dioxide 21 L BUN 33 H Creatinine 1.6 H Glucose 155 H Uric Acid 11.0 H Total Bilirubin 1.2 H Direct Bilirubin 0.3 H GGT 111 H Alkaline Phosphatase 137 H Troponin T 0.03 H NT-Pro-B Natriuret Pep 4209.0 H Procalcitonin 0.10 H 02/25/22 02/25/22 02/25/22 14:11 14:11 14:11 WBC 12.8 H MCHC RDW 16.2 H Neut % (Auto) 94.8 H Lymph % (Auto) 2.4 L Lymph # (Auto) 0.31 L Absolute Neutrophils 12.13 H Carbon Dioxide BUN 33 H Creatinine 1.6 H Glucose 162 H Uric Acid Total Bilirubin 1.2 H Direct Bilirubin GGT Alkaline Phosphatase 131 H Troponin T 0.04 H* NT-Pro-B Natriuret Pep Procalcitonin Meds: Medications Acetaminophen (Acetaminophen 500 Mg Tablet) 1,000 mg PO BID [facility] Last Admin: 02/26/22 08:16 Dose: 1,000 mg Documented by: Albuterol Sulfate (Albuterol Sulfate 2.5 Mg/3 Ml Nebulizer) 2.5 mg NEB Q2HP PRN PRN Reason: Shortness Of Breath Aspirin (Aspirin 81 Mg Tab.Chew) 81 mg PO DAILY [facility] Last Admin: 02/26/22 08:13 Dose: 81 mg Documented by: Atorvastatin Calcium (Atorvastatin 40 Mg Tablet) 40 mg PO [facility] Bisoprolol Fumarate (Bisoprolol 5 Mg Tablet) 10 mg PO DAILY [facility] Last Admin: 02/26/22 08:13 Dose: 10 mg Documented by: Docusate Sodium (Docusate Sodium 100 Mg Capsule) 100 mg PO BID [facility] Last Admin: 02/26/22 08:17 Dose: 100 mg Documented by: Famotidine (Famotidine 20 Mg Tablet) 20 mg PO BID [facility] Last Admin: 02/26/22 08:17 Dose: 20 mg Documented by: Fluticasone Propionate (Fluticasone Propionate Velpen.Dimitry) 2 spray NS QDAY [facility] Last Admin: 02/26/22 08:17 Dose: Not Given Documented by: Folic Acid (Folic Acid 1 Mg Tablet) 1 mg PO QDAY [facility] Last Admin: 02/26/22 08:17 Dose: 1 mg Documented by: Furosemide (Furosemide 100 Mg/10 Ml Vial) 60 mg IV Q12 [facility] Last Admin: 02/26/22 08:25 Dose: 60 mg Documented by: Guaifenesin (Guaifenesin 600 Mg Tab.Sr.12h) 600 mg PO Q12H [facility] Last Admin: 02/26/22 12:09 Dose: 600 mg Documented by: Heparin Sodium (Porcine) (Heparin 5,000 Unit/Ml Vial) 5,000 unit SQ Q12 [facility] Last Admin: 02/26/22 08:25 Dose: 5,000 unit Documented by: Lactulose (Lactulose 20 Gm/30 Ml Oral.Gabriella) 10 gm PO DAILYP PRN PRN Reason: Constipation Levothyroxine Sodium (Levothyroxine 75 Mcg Tablet) [facility] Admin: 02/26/22 08:11 Dose: 75 mcg Documented by: Lisinopril (Lisinopril 10 Mg Tablet) 10 mg PO QDAY [facility] Last Admin: 02/26/22 08:17 Dose: 10 mg Documented by: Ondansetron HCl (Ondansetron 4 Mg/2 Ml Vial) 4 mg IV Q4HP PRN; Protocol PRN Reason: Nausea And Vomiting (Breo Ellipta 100 (Mcg/25 Mcg)) 1 dose INH DAILY [facility] Prednisone (Prednisone 20 Mg Tablet) 40 mg PO [facility] Stop: 03/01/22 08:01 Pyridoxine HCl (Pyridoxine 100 Mg Tablet) 250 mg PO DAILY [facility] Last Admin: 02/26/22 08:13 Dose: 250 mg Documented by: Senna (Sennosides 1 Tablet) 2 tab PO HSP PRN PRN Reason: Constipation Sodium Chloride (0.9 % Sodium Chloride 10 Ml Syringe) 10 ml IV Q8 [facility] Last Admin: 02/26/22 14:12 Dose: 10 ml Documented by: Tiotropium [place] (Tiotropium [place] 18 Mcg Inhalant) 2 mcg INH DAILY [facility] Trazodone HCl (Trazodone Hcl 100 Mg Tablet) 100 mg PO QHS PRN PRN Reason: insomnia Last Admin: 02/26/22 00:43 Dose: 100 mg Documented by: A/P Narrative A/P Narrative: Assessment: 71 year old male with a history of COPD with chronic hypoxia, congestive heart failure, chronic kidney disease stage III, obstructive sleep apnea on ASV machine, hypertension, hyperlipidemia, obesity, hypothyroidism, history of lung cancer status post left lower lobe lobectomy who presented to the ED from home for shortness of breath that started this morning after he went to the bathroom. The patient was found to have an oxygen requirement of 6 L/min, at his baseline oxygen requirement has recently been 4.5 L/min. The cause of the patient's increased by her current requirement is unclear, possibly related to a COPD exacerbation. Additionally, the patient appears to be somewhat volume overloaded therefore mild CHF may be playing a role. #Acute on chronic hypoxic respiratory failure #Acute on chronic diastolic heart failure #COPD with possible mild exacerbation #Chronic kidney disease stage III #Obstructive sleep apnea on ASV #Hypertension #Hyperlipidemia #Hypothyroidism #History of lung cancer status post left lower lobectomy #Obesity BMI 44 Plan -Continue Lasix 60 mg IV twice daily, hold home torsemide. -Monitor renal function and diuresis. -Oxygen supplementation, wean back to baseline as tolerated. -Start prednisone 40 mg daily, discontinue Solumdrol. -Resume home COPD inhalers. -Consider transthoracic echocardiogram, last completed 11/02/2021. -CPAP at bedtime. -rn home health while diuresing. -Low-sodium diet. -PT consult. -DVT prophylaxis: Heparin SQ -CODE STATUS: Full -Disposition: Probably home when stable. Time Spent With Patient Time: Total time spent is greater than 50% in coordination of care (as documented) at patient's floor/unit and/or counseling patient: QUALITY Stroke Symptom Onset Unknown: No VTE Deep Vein Thrombosis/Pulmonary Embolism Present on Admission: No
[2022-02-26] MEDS ORDERED: ATORVASTATIN 40 MG TABLET PO SCH (21:00)
[2022-02-27] MEDS: 0.9 % SODIUM CHLORIDE 10 ML SYRINGE IV SCH (05:06)
[2022-02-27 06:37] LABS: Basophils # (Auto) 0.02 K/mcL (0.00-0.30); Basophils % (Auto) 0.1 % (0.0-2.0); Eosinophils # (Auto) 0 K/mcL (0.00-0.70); Eosinophils % (Auto) 0 % (0.0-7.0); Lymphocytes # (Auto) 0.88 K/mcL (1.50-4.80); Lymphocytes % (Auto) 4.7 % (15.5-49.0); Mean Cell Volume 91.9 fL (80.0-100.0); Mean Corpuscular HGB Conc 31.8 g/dL (31.0-36.0); Mean Platelet Volume 10.5 fL (7.4-10.4); Monocytes % (Auto) 7.5 % (1.0-12.0); Neutrophils % (Auto) 87.7 % (38.0-78.0); Platelet Count 323 K/mcL (140-440); RBC 4.79 M/mcL (4.63-6.08); Red Cell Distribution Width 16.1 % (11.5-14.5); WBC 18.8 K/mcL (4.5-11.0)
[2022-02-27 07:21] LABS: ALT/SGPT 43 U/L (<40); AST/SGOT 30 U/L (<40); Albumin 4.2 gm/dL (3.2-5.2); Albumin/Globulin Ratio 1.4 (1.0-2.3); Alkaline Phosphatase 118 U/L (39-117); Bilirubin,Direct 0.3 mg/dL (<0.3); Blood Urea Nitrogen 51 mg/dL (8-23); Calcium 9.7 mg/dL (8.6-10.4); Carbon Dioxide 25 mmol/L (22-30); Chloride 103 mmol/L (96-108); Globulin 2.9 gm/dL (2.2-3.7); Glomerular Filtration Rate 39; Glucose 150 mg/dL (70-105); Lactate Dehydrogenase 205 U/L (135-225); Phosphorous 4.2 mg/dL (2.5-4.5); Triglycerides 69 mg/dL (<150); Uric Acid 12.8 mg/dL (2.5-8.0)
[2022-02-27] MEDS ORDERED: predniSONE 20 MG TABLET PO SCH (08:00)
[2022-02-27] MEDS ORDERED: BREO ELLIPTA INH SCH (09:00)
[2022-02-27] MEDS ORDERED: TIOTROPIUM BROMIDE 18 MCG INHALANT INH SCH (09:00)
--- NOTE | 2022-02-27 09:40 | Discharge Summary ---
Discharge Provider Provider Patient information: Note initiated : 02/27/22 at 9:37 am Service Date, if different from initiated Date: [] Patient: Ced Mejía 71 y/o M admitted on 02/25/22 for Shortness of breath. Chief Complaint: [] Date of admission: 02/25/22 19:47 Discharge date: 02/27/22 Primary care physician: Sirena Rosen Consults: 02/25/22 Consult to Physician [CONS] Stat Comment: Consulting Provider: Marlon Joseph Reason For Exam: Physician to Consult Consult to Physician [CONS] Stat Comment: Consulting Provider: Marlon Joseph Reason For Exam: Physician to Consult Discharge Meds Discharge Medications Home Medications cyanocobalamin (vitamin B-12) 2,500 mcg sublingual lozenge 2,500 mcg SUBLINGUAL QHS 12/28/17 [History Confirmed 02/25/22 Last Taken 11/01/21 21:00] ferrous sulfate 325 mg (65 mg iron) tablet 325 mg PO QDAY tab 12/28/17 [History Confirmed 02/25/22 Last Taken 11/01/21 08:00] pyridoxine (vitamin B6) 250 mg tablet 250 mg PO DAILY 12/28/17 [History Confirmed 02/25/22 Last Taken 11/01/21 08:00] bisoprolol fumarate 10 mg tablet 10 mg PO QDAY 02/03/18 [History Confirmed 02/25/22 Last Taken 11/01/21 08:00] guaifenesin 600 mg tablet, extended release 12 hr (Mucinex) 600 mg PO Q12H [History Confirmed 02/25/22 Last Taken 11/01/21 21:00] atorvastatin 40 mg tablet 40 mg PO HS 05/10/18 [History Confirmed 02/25/22 Last Taken 11/01/21 21:00] levothyroxine 75 mcg capsule 75 mcg PO QDAY 03/26/19 [History Confirmed 02/25/22 Last Taken 11/01/21 07:00] CPAP #1 ea 10/24/19 [History Confirmed 02/25/22 Last Taken Unknown] acetaminophen [Tylenol] 1,000 mg PO BID 01/29/20 [History Confirmed 02/25/22 Last Taken 11/01/21 00:00] cholecalciferol (vitamin D3) 25 mcg (1,000 unit) capsule 2,000 unit PO QDAY cap 01/29/20 [History Confirmed 02/25/22 Last Taken 11/01/21 08:00] folic acid 1 mg tablet 1 mg PO QDAY 09/29/20 [History Confirmed 02/25/22 Last Taken 11/01/21 08:00] tiotropium bromide 2.5 mcg/actuation mist for inhalation (Spiriva Respimat) 2 puff INHALATION DAILY 11/02/21 [History Confirmed 02/25/22 Last Taken 11/01/21 08:00] trazodone 100 mg tablet 100 mg PO QHS 11/02/21 [History Confirmed 02/25/22 Last Taken Unknown] aspirin 81 mg tablet 81 mg PO QDAY 11/10/21 [History Confirmed 02/25/22 Last Taken 11/30/21 08:10] fluticasone propionate 50 mcg/actuation nasal spray,suspension 2 spray INTRANASAL QDAY #48 g 02/02/22 [Rx Confirmed 02/25/22 Last Taken Unknown] Breo Ellipta 1 cap INHALATION DAILY 02/25/22 [History Confirmed 02/25/22 Last Taken Unknown] famotidine 20 mg tablet 20 mg PO BID 02/25/22 [History Confirmed 02/25/22 Last Taken Unknown] lisinopril 10 mg tablet 10 mg PO QDAY 02/25/22 [History Confirmed 02/25/22 Last Taken Unknown] prednisone 20 mg tablet 40 mg PO QAMCC 2 Days #4 tab 02/27/22 [Rx Last Taken Unknown] torsemide 40 mg tablet 40 mg PO QAM #60 tab 02/27/22 [Rx Last Taken Unknown] COURSE Hospital Course Hospital course: Mr. Mejía is a 71 year old male with a history of COPD with chronic hypoxia, congestive heart failure, chronic kidney disease stage III, obstructive sleep apnea on ASV machine, hypertension, hyperlipidemia, obesity, hypothyroidism, hi story of lung cancer status post left lower lobe lobectomy who presented to the ED from home for shortness of breath that started this morning after he went to the bathroom. The patient says that he was unable to get his oxygen saturations above 80 after going to the bathroom. EMS was notified, came to the patient's home and gave the patient a bronchodilator treatment as well as a dose of Decadr on. The patient did not feel back to his baseline and called EMS again, the patient was then brought to the emergency department where he was found to have an oxygen requirement of 6 L/min. The patient says that he has been using 4.5 L/min at home for some time, he says that he is supposed to use about 3.5 L/min nasal cannula oxygen. In the emergency department, the patient received bronchodilators after which he felt better but not back to his baseline. In the ED, the patient had an elevated white blood cell count of 12.8, renal function was near the patient's baseline, troponin was mildly elevated at a 0.04, EKG did not show any acute ischemic changes. The patient did not have any chest pains in the preceding day. Chest x-ray showed a chronic right middle lobe pulmonary parenchymal infiltrate and volume loss, severe emphysema, no new pulmonary parenchymal infiltrates. 02/26 Improving oxygen requirement, presentations seems more likely to be due to heart failure than COPD. Continue lasix IV for diuresis. Resumed home inhalers, transitioned from Solumedrol IV to prednisone for 5 days. Speech evaluation for reported issues with swallowing food. Transitioned to med/surg status. 02/27 Oxygen requirement at 3.5 L/min which was the patient's prior recommended supplementation. Discontinued Lasix IV and transition to torsemide 40 mg daily. Discharged home with PCP follow-up. Complete 2 more days for total of 5 days of systemic steroids for possible COPD exacerbation. In hindsight, I feel like this is more of a acute on chronic diastolic heart failure exacerbation then COPD exacerbation. After discussing diuretics in detail the with the patient I learned that he was taking torsemide 10 mg twice a day instead of torsemide 20 mg once a day which was his prescribed dose. We will have him follow-up with his PCP for repeat labs on torsemide 40 mg daily which is a reasonable dose given the patient's chronic kidney disease will require slightly higher doses of a loop diuretic to be effective. We also discussed the importance of checking weights daily, maintaining a low-sodium diet for improved quality of life. Physical exam Head: Atraumatic, normal inspection. Eyes: normal appearance, no scleral icterus. Neck: full ROM Respiratory: Bilateral crackles, no respiratory distress. Cardiovascular: normal rate and rhythm, S1, S2. GI/Abdominal: soft, nontender, no guarding. Extremities: full range of motion, nontender. Neurological: CN II-XII intact, intact motor, intact sensation. Psychiatric: normal mood. Skin: warm, normal color Discharge diagnosis: Acute on chronic diastolic heart failure Secondary discharge diagnosis: Possible COPD exacerbation Time Spent with Patient Time attestation: Total time spent providing and/or coordinating discharge services: EXAM Constitutional Vitals: Temp Pulse Resp BP Pulse Ox 97 F 59 L 20 117/63 93 02/27/22 07:32 02/27/22 07:32 02/27/22 07:32 02/27/22 07:32 02/27/22 07:32 Discharge Data Data Completed and Pending Labs on day of discharge: Labs from last 24 hours 02/27/22 02/27/22 06:04 06:04 WBC 18.8 H RBC 4.79 Hgb 14.0 Hct 44.0 MCV 91.9 MCH 29.2 MCHC 31.8 RDW 16.1 H Plt Count 323 MPV 10.5 H Neut % (Auto) 87.7 H Lymph % (Auto) 4.7 L [place] % (Auto) 7.5 Eos % (Auto) 0 Baso % (Auto) 0.1 Lymph # (Auto) 0.88 L [place] # (Auto) 1.40 H Eos # (Auto) 0 Baso # (Auto) 0.02 Absolute Neutrophils 16.48 H Sodium 141 Potassium 4.3 Chloride 103 Carbon Dioxide 25 Anion Gap 13.0 BUN 51 H Creatinine 1.7 H GFR Calculation 39 Glucose 150 H Uric Acid 12.8 H Calcium 9.7 Phosphorus 4.2 Magnesium 2.4 Total Bilirubin 1.0 Direct Bilirubin 0.3 H GGT 113 H AST 30 ALT 43 H Alkaline Phosphatase 118 H Lactate Dehydrogenase 205 Total Protein 7.1 Albumin 4.2 Globulin 2.9 Albumin/Globulin Ratio 1.4 Triglycerides 69 Discharge Plan Patient/Caregiver Discharge Instructions Activity: increase activity as tolerated Diet: Low Sodium (2gm) Prescriptions: New torsemide 40 mg tablet 40 mg PO QAM Qty: 60 6RF prednisone 20 mg Tablet 40 mg PO QAMCC 2 Days Qty: 4 0RF Continued fluticasone propionate 50 mcg/actuation spray,suspension 2 spray intranasal QDAY Qty: 48 12RF cyanocobalamin (vitamin B-12) 2,500 mcg lozenge 2,500 mcg SUBLINGUAL QHS 0RF ferrous sulfate 325 mg (65 mg iron) tablet 325 mg PO QDAY 0RF pyridoxine (vitamin B6) 250 mg tablet 250 mg PO DAILY 0RF Label Comments: PO acetaminophen 1,000 mg PO BID 0RF bisoprolol fumarate 10 mg tablet 10 mg PO QDAY 0RF guaifenesin [Mucinex] 600 mg tablet extended release 12hr 600 mg PO Q12H 0RF cholecalciferol (vitamin D3) 25 mcg (1,000 unit) capsule 2,000 unit PO QDAY 0RF atorvastatin 40 mg tablet 40 mg PO HS 0RF levothyroxine 75 mcg capsule 75 mcg PO QDAY 0RF (DME) CPAP Qty: 1 0RF Rx Instructions: As directed folic acid 1 mg tablet 1 mg PO QDAY 0RF trazodone 100 mg tablet 100 mg PO QHS 0RF Spiriva Respimat 2.5 mcg/actuation mist 2 puff INHALATION DAILY 0RF aspirin 81 mg Tablet 81 mg PO QDAY 0RF famotidine 20 mg Tablet 20 mg PO BID 0RF lisinopril 10 mg Tablet 10 mg PO QDAY 0RF Breo Ellipta 100 mcg/25 mcg capsule 1 cap inhalation DAILY 0RF Discontinued torsemide 20 mg tablet 10 mg PO DAILY 0RF Follow Up Plan Follow up with: Sirena Rosen [Primary Care Provider] - Patient Disposition: Home, Self-Care Overall status at discharge: patient is progressing back to baseline Discharge Orders: Discharge Order (Routine); Ordered 02/27/22 Ordered By: Marlon Joseph QUALITY VTE Deep Vein Thrombosis/Pulmonary Embolism Present on Admission: No
[2022-02-27] MEDS: BISOPROLOL 5 MG TABLET PO SCH (09:44)
[2022-02-27] MEDS: ASPIRIN 81 MG TAB.CHEW PO SCH (09:44)
[2022-02-27] MEDS: PYRIDOXINE 100 MG TABLET PO SCH (09:44)
[2022-02-27] MEDS: FOLIC ACID 1 MG TABLET PO SCH (09:45)
[2022-02-27] MEDS: FAMOTIDINE 20 MG TABLET PO SCH (09:45)
[2022-02-27] MEDS: LISINOPRIL 10 MG TABLET PO SCH (09:46)
[2022-02-27] MEDS: DOCUSATE SODIUM 100 MG CAPSULE PO SCH (09:46)
[2022-02-27] MEDS: LEVOTHYROXINE 75 MCG TABLET PO SCH (09:46)
[2022-02-27] MEDS: ACETAMINOPHEN 500 MG TABLET PO SCH (09:46)
[2022-02-27] MEDS: HEPARIN 5,000 UNIT/ML VIAL SQ SCH (09:47)
[2022-02-27] MEDS: FUROSEMIDE 100 MG/10 ML VIAL IV SCH (09:49)
[2022-02-27] MEDS: guaiFENesin 600 MG TAB.SR.12H PO SCH (10:08)
[2022-02-27] MEDS: FLUTICASONE PROPIONATE SPRAY.NAS NS SCH (10:21)
== END 2022-02-27 13:35 | disposition home or self-care (01) | DRG 291 ==
LOC: ED 13:41 → ICU 19:47 → MEDSUR 02-26 17:11
PROVIDERS: ADMIT Internal Medicine; ATTEND Internal Medicine